=== PATIENT | male | born 1985 | race Caucasian/White ===

== ENCOUNTER 2017-12-28 01:05 | Inpatient (IN) | payer MEDICAID ==
[~2017-12-28] VITALS: Ht 195.6 cm; Wt 63.0 kg
[~2017-12-28 01:05] MED LIST: IRON325 PO; OXYCODONE HCL 55 MG PO; PEPCID20 MG PO; SENOKOT-S1 TA1 PO; ZOFRAN ODT4 MG PO
[2017-12-28 01:11] VITALS: BP 128/81
[2017-12-28 01:47] LABS: ABSOLUTE BASOPHILS 0.1 thou/uL (0.0-0.2); ABSOLUTE EOSINOPHILS 0.2 thou/uL (0.0-0.7); ABSOLUTE LYMPHOCYTES 3.1 thou/uL (0.8-5.3); ABSOLUTE MONOCYTES 1.6 thou/uL (0.0-1.2); ABSOLUTE NEUTROPHILS 10.8 thou/uL (1.6-8.1); BASOPHILS 0.7 %; HEMATOCRIT 42.1 % (42.0-52.0); HEMOGLOBIN 14.5 gm/dL (14.0-18.0); LYMPHOCYTES 19.9 %; MCH 32.3 pg (26.0-34.0); MCHC 34.4 g/dL (28.0-37.0); MONOCYTES 9.9 %; NUCLEATED RBCS 0 /100WBC; PLATELET COUNT* 306 thou/uL (150-400); POLYS 68.5 %; RBC 4.48 mil/uL (4.50-6.00); RDW-CV 14.6 % (10.5-14.5); WBC 15.8 thou/uL (4.0-11.0)
[2017-12-28 01:55] LABS: CALCIUM 10.1 mg/dL (8.5-10.1)
[2017-12-28 02:03] LABS: ALBUMIN 4.4 g/dL (3.4-5.0); TOTAL BILIRUBIN 2.7 mg/dL (<0.1-1.0); TOTAL PROTEIN 7.3 g/dL (6.4-8.2)
[2017-12-28 02:34] LABS: URINE BLOOD NEGATIVE (Negative); URINE CLARITY CLEAR; URINE COLOR YELLOW; URINE GLUCOSE-RANDOM NEGATIVE (Negative); URINE LEUKOCYTES-REFLEX NEGATIVE (Negative); URINE NITRITE-REFLEX NEGATIVE (Negative); URINE PROTEIN TRACE (Negative); URINE SPECIFIC GRAVITY >= 1.030 (1.005-1.030); URINE UROBILINOGEN 0.2 E.U./dl (0.2-1.0)
[2017-12-28 02:35] LABS: URINE BILIRUBIN 1+ (Negative); URINE KETONES 3+ (Negative)
[2017-12-28 02:40] LABS: URINE REDUCING SUBSTANCE NEGATIVE (Negative)
[2017-12-28 02:56] VITALS: BP 137/89
[2017-12-28 03:15] LABS: ICTOTEST (BILI CONFIRMATORY) Negative (Negative)
--- NOTE | 2017-12-28 04:49 | NUR ---
RECIEVED REPORT AND ASSUMED CARE OF PATIENT AT 0300 WHEN PATIENT WAS TRANSPORTED TO UNIT FROM ER. PATIENT AMBULATED TO BED WITH SBA, PATIENT SLIGHTLY UNSTEADY. PATIENT A&OX4. PATIENT ORIENTED TO ROOM AND CALL LIGHT. PATIENT STATES HE IS FAMILIAR WITH THE HOSPITAL, HE WAS HERE LAST YEAR WITH THE SAME DIAGNOSIS OF PANCREATITIS. PATIENT ON ROOM AIR WITH SATS >92%. IVF INFUSING PER EMAR. C/O PAIN IN ABDOMEN, DILAUDID ADMINISTERED PER EMAR WITH PARTIAL RELIEF. PATIENT OFFERED ALTERNATIVE METHODS OF PAIN RELIEF, PATIENT STATES HE "TRIED EVERYTHING AT HOME WITH NO RELIEF." PATIENT PROVIDED WITH A DARK, QUIET ENVIRONMENT TO PROMOTE REST AND RELAXATION. PATIENT RESTING COMFORTABLY AT THIS TIME. GOAL FOR THIS SHIFT IS EFFECTIVE PAIN MANAGEMENT. CALL LIGHT WITHIN REACH.
--- NOTE | 2017-12-28 06:36 | NUR ---
PATIENT NOT PROGRESSING TOWARDS GOALS: PAIN NOT MANAGED EFFECTIVELY WITH PRN DILAUDID. PATIENT STATES THAT IT "THE MEDICATION WEARS OFF QUICKLY AND THE PAIN SPIKES BACK UP." PATIENT COULD POSSIBLY BENEFIT FROM ALTERNATIVE MEDICATION, HOWEVER, PATIENT IS NPO SO HE WOULD NEED SOMETHING IV. PATIENT PROVIDED WITH A WARM BLANKET TO LAY ACROSS HIS ABDOMEN, HE STATES THIS MIGHT HELP. HOURLY ROUNDING OBSERVED. CALL LIGHT WITHIN REACH.
[2017-12-28] MEDS ORDERED: COLACE100 MG PO (06:59)
[2017-12-28 09:00] VITALS: BP 120/68
[2017-12-28 12:00] VITALS: BP 120/77
--- NOTE | 2017-12-28 13:55 | NUR ---
PT SLEEPING, WILL TRY TO SEE LATER. PER NURSE, HAVING PAIN CONTROL ISSUES
[2017-12-28 15:06] LABS: CHOLESTEROL 114 mg/dL (<200); HDL CHOLESTEROL 78 mg/dL (>40); LDL CHOLESTEROL 23 mg/dL (<100); TC:HDL 1.5 Ratio (Not establshd); TRIGLYCERIDE 69 mg/dL (<150); VLDL 14 mg/dL (<40)
[2017-12-28 15:08] LABS: SERUM ASSESSMENT Clear
[2017-12-28 16:00] VITALS: BP 121/77
--- NOTE | 2017-12-28 16:46 | NUR ---
ASSUMED PT CARE AT 0700 PT IS ALERT AND ORIENTED X 4 PT C/O PAIN IN ABDOMEN GAVE DILAUDED THROUGHOUT SHIFT WHICH PT STATES HELPS WITH PAIN, PT DENIES SOA ON RA, PT IS UP WITH STAND BY ASSIST, PT IS NPO WITH ICE CHIPS PT WAS COMPLETELY NPO FOR ULTRASOUND OF ABDOMEN, PT IS SR ON THE MONITOR, PT HAS SLEPT THROUGHOUT SHIFT, PT VSS, WILL CONTINUE TO MONITOR
[2017-12-28 20:00] VITALS: BP 138/98
[2017-12-29] VITALS: BP 128/76
[2017-12-29 04:03] VITALS: BP 127/79
[2017-12-29 05:28] LABS: HEMATOCRIT 36.9 % (42.0-52.0); HEMOGLOBIN 12.6 gm/dL (14.0-18.0); MCH 33.1 pg (26.0-34.0); MCHC 34.3 g/dL (28.0-37.0); MCV 96.4 fL (80.0-100.0); MPV 8.4 fl. (7.2-11.1); RBC 3.82 mil/uL (4.50-6.00); RDW-CV 13.8 % (10.5-14.5); WBC 7.7 thou/uL (4.0-11.0)
[2017-12-29 05:45] LABS: CREATININE 0.7 mg/dL (0.6-1.3); POTASSIUM 5.1 mmol/L (3.5-5.1)
[2017-12-29 05:47] LABS: CALCIUM 8.1 mg/dL (8.5-10.1)
--- NOTE | 2017-12-29 05:56 | NUR ---
PT A&O X4 CALM AND COOPERITVE. PT HAS PAIN IN ABD. MEDICATION GIVEN WITH RELIEF, PAIN MANAGEMENT PRIMARY GOAL OF PATIENT. FLUIDS GOING. RA. PT IS STAND BY / X1 ASSIST. SR-ST ON THE MONITOR. VITALS WNL. FALL PRECAUTIONS IN PLACE. HOURLY ROUNDING FOR SAFETY.
[2017-12-29 09:30] VITALS: BP 113/62
--- NOTE | 2017-12-29 11:30 | NUR ---
MET WITH PT TO DISCUSS HOME SITUATION/DC PLANNING. PT LIVES WITH HIS OLDER SISTER. PT IS INDEPENDENT AND ACTIVE, USES NO EQUIPMENT. PT STATES HE IS UNEMPLOYED AND LOOKING FOR A JOB. 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 PT HAS SUPPORTIVE FAMILY. HE USES [employer] TO GET FOOD. DISCUSSED PT'S ETOH USE, HE STATES HE FEELS HE HAS IT UNDER 'CONTROL'. HAS GONE TO AA IN THE PAST BUT NOT CURRENT. PT ADMITS THAT HE LAST DRANK 2 WEEKS AGO. STATES HE HAD PROBLEMS WITH RELATIONSHIP AND FINANCES BUT IS TRYING TO GET BACK ON TRACK. OFFERED COMMUNITY RESOURCES AND INFO, HE WAS OPEN TO THAT. PROVIDED TO HIM WELL DISABILITY INFO. ENCOURAGED HIM TO DISCUSS WITH HIS PCP IF HE WAS INTERESTED IN PURSUEING IT. WILL FOLLOW
[2017-12-29 12:00] VITALS: BP 104/64
[2017-12-29 16:00] VITALS: BP 110/65
--- NOTE | 2017-12-29 17:53 | NUR ---
ASSUMED PT CARE AT 0700 PT IS ALERT AND ORIENTED X 4 PT STATES LITTLE ABDOMINAL PAIN GAVE PAIN MEDS REASSESSED PT WHO WAS SLEEPING, TALKED WITH DR RASMUSSEN WHO ORDERED CLEAR LIQUID DIET WHICH PT IS TOLERATING AND STATES PAIN IN ABDOMEN IS BETTER AND PT HAS HAD NO FURTHER EPISODES OF NAUSEA, PT IS A FALL RISK BED ALARM IS ON, PT IS SR ON MONITOR, PT VSS, WILL CONTINUE TO MONITOR
[2017-12-29 20:20] VITALS: BP 105/68
[2017-12-30] VITALS: BP 114/72
[2017-12-30 04:00] VITALS: BP 118/78
--- NOTE | 2017-12-30 06:15 | NUR ---
A&O X4 CALM COOPERITVE. PAIN MANAGEMENT IS PT GOAL. PT HAS REPORTED PAIN HAS DECREASED. NSR ON THE MONITOR. PT IS STAND BY ASSIT BECAUSE OF REPORTS OF DIZZY NESS. FUILDS RUNNING. PT ON CLEAR LIQUID DIET TO ADVANCE. VITALS WNL. FALL PRECAUTIONS IN PLCE. HOULY ROUNDING FOR SAFETY.
[2017-12-30 08:00] VITALS: BP 113/70
[2017-12-30 11:34] VITALS: BP 116/76
[2017-12-30] MEDS ORDERED: HYDROCODONE-AP1 EAC6 PO (13:56)
[2017-12-30] MEDS ORDERED: ONDANSETRON HCL4 M2 PO (13:57)
[2017-12-30 14:35] VITALS: BP 116/76
== END 2017-12-30 15:07 | disposition home or self-care (01) | DRG 439 ==
LOC: M.ERS 01:05 → M.2W 02:17 → M.TBA-ER 02:17 → M.2W 03:07
PROVIDERS: Family Medicine; Internal Medicine; ADMIT Internal Medicine
DX: K85.90 Acute pancreatitis without necrosis or infection, unspecified (principal); B17.9 Acute viral hepatitis, unspecified; F32.9 Major depressive disorder, single episode, unspecified; F17.210 Nicotine dependence, cigarettes, uncomplicated; F10.10 Alcohol abuse, uncomplicated; E16.2 Hypoglycemia, unspecified; Z82.49 Family history of ischemic heart disease and other diseases of the circulatory system; Z79.899 Other long term (current) drug therapy

== ENCOUNTER 2018-04-05 21:19 | Inpatient (IN) | payer OTHER, MEDICAID ==
[~2018-04-05] VITALS: Ht 195.6 cm; Wt 68.0 kg
[~2018-04-05 21:19] MED LIST changes: +COLACE100 MG PO; +HYDROCODONE-AP1 EAC6 PO; +ONDANSETRON HCL4 M2 PO
[2018-04-05 21:31] VITALS: BP 120/55
[2018-04-05 21:55] LABS: ABSOLUTE BASOPHILS 0.1 thou/uL (0.0-0.2); ABSOLUTE EOSINOPHILS 0.1 thou/uL (0.0-0.7); ABSOLUTE LYMPHOCYTES 1.8 thou/uL (0.8-5.3); ABSOLUTE MONOCYTES 0.7 thou/uL (0.0-1.2); ABSOLUTE NEUTROPHILS 6.6 thou/uL (1.6-8.1); BASOPHILS 0.6 %; EOSINOPHILS 1.5 %; HEMATOCRIT 36.9 % (42.0-52.0); HEMOGLOBIN 12.4 gm/dL (14.0-18.0); LYMPHOCYTES 19.5 %; MCH 31.3 pg (26.0-34.0); MCHC 33.6 g/dL (28.0-37.0); MONOCYTES 7.3 %; MPV 8.3 fl. (7.2-11.1); NUCLEATED RBCS 0 /100WBC; PLATELET COUNT* 245 thou/uL (150-400); POLYS 71.1 %; RBC 3.97 mil/uL (4.50-6.00); WBC 9.3 thou/uL (4.0-11.0)
[2018-04-05 22:04] LABS: CALCIUM 9.1 mg/dL (8.5-10.1); POTASSIUM 3.8 mmol/L (3.5-5.1)
[2018-04-05 22:09] LABS: ALBUMIN 3.6 g/dL (3.4-5.0); TOTAL PROTEIN 6.6 g/dL (6.4-8.2)
[2018-04-05 22:10] LABS: ACETAMINOPHEN 11 ug/mL (10-30); SALICYLATE < 2.8 mg/dL (2.8-20.0)
[2018-04-05 22:12] LABS: ALCOHOL < 10 mg/dL (<10)
[2018-04-05 23:01] LABS: CHOLESTEROL 126 mg/dL (<200); HDL CHOLESTEROL 67 mg/dL (>40); LDL CHOLESTEROL 46 mg/dL (<100); SERUM ASSESSMENT Clear; TC:HDL 1.9 Ratio (Not establshd); TRIGLYCERIDE 66 mg/dL (<150); VLDL 13 mg/dL (<40)
[2018-04-05 23:20] VITALS: BP 142/93
[2018-04-05 23:30] VITALS: BP 142/93
[2018-04-06 08:00] VITALS: BP 135/90
[2018-04-06 09:08] LABS: URINE BILIRUBIN NEGATIVE (Negative); URINE BLOOD NEGATIVE (Negative); URINE CLARITY CLEAR; URINE COLOR YELLOW; URINE GLUCOSE-RANDOM NEGATIVE (Negative); URINE KETONES 2+ (Negative); URINE LEUKOCYTES-REFLEX NEGATIVE (Negative); URINE NITRITE-REFLEX NEGATIVE (Negative); URINE PROTEIN NEGATIVE (Negative); URINE SPECIFIC GRAVITY 1.025 (1.005-1.030); URINE UROBILINOGEN 0.2 E.U./dl (0.2-1.0)
[2018-04-06 09:17] LABS: AMP/METHAMP Negative (Negative); BARBITURATES Negative (Negative); BENZODIAZEPINES Negative (Negative); COCAINE Negative (Negative); METHADONE Negative (Negative); OPIATES POSITIVE (Negative); PCP Negative (Negative); THC Negative (Negative)
[2018-04-06 16:17] VITALS: BP 141/72
[2018-04-06 20:20] VITALS: BP 123/88
[2018-04-07 03:44] LABS: ABSOLUTE EOSINOPHILS 0.1 thou/uL (0.0-0.7); ABSOLUTE LYMPHOCYTES 0.8 thou/uL (0.8-5.3); ABSOLUTE MONOCYTES 0.4 thou/uL (0.0-1.2); BASOPHILS 0.2 %; EOSINOPHILS 1.6 %; HEMATOCRIT 34.8 % (42.0-52.0); HEMOGLOBIN 11.7 gm/dL (14.0-18.0); LYMPHOCYTES 11.5 %; MCHC 33.5 g/dL (28.0-37.0); MCV 92.5 fL (80.0-100.0); MONOCYTES 5.1 %; MPV 9.2 fl. (7.2-11.1); NUCLEATED RBCS 0 /100WBC; PLATELET COUNT* 196 thou/uL (150-400); POLYS 81.6 %; RBC 3.76 mil/uL (4.50-6.00); WBC 7.4 thou/uL (4.0-11.0)
[2018-04-07 04:24] LABS: CREATININE 0.7 mg/dL (0.6-1.3); POTASSIUM 3.8 mmol/L (3.5-5.1)
[2018-04-07 08:45] VITALS: BP 125/75
[2018-04-07 15:59] VITALS: BP 109/64
[2018-04-07 20:00] VITALS: BP 112/71
[2018-04-08 07:30] VITALS: BP 105/66
[2018-04-08 15:41] VITALS: BP 115/57
[2018-04-08 17:34] VITALS: BP 115/57
[2018-04-08] MEDS ORDERED: PANCREAZE DR 11 EAC2 PO (17:34)
--- NOTE | 2018-04-10 10:00 | CON ---
[address] [address] CONSULTATION Name: ELIJAH HAMMOND Room: [address] IN M.R.#: [id number] Admission: 04/05/18 Attend Phys: vSitlana Ruby MD Discharge: 04/08/18 Date of : 83 Report #: [id number] THIS REPORT FOR: //name// CC: CIPRIANO Ruby DATE OF SERVICE: 04/06/2018 ADDENDUM I have personally seen and examined the patient and reviewed labs and imaging. The patient with symptoms of epigastric pain and nausea, which started on Wednesday. The patient reports that he initially took some Tylenol and got some relief Wednesday, but Wednesday, his symptoms came back and were worsening. Therefore, he presented to the hospital. Since hospitalization, he found to have elevated lipase in 1900 range. He also has CT imaging evidence of acute pancreatitis. Note that this is his third episode of pancreatitis. He is currently on IV fluid. We will allow him to have clear liquids and MRI of the abdomen was done this evening, but the results are pending. We will recommend the endoscopic ultrasound as outpatient to further evaluate pancreatic duct to assure that he does not have any anomalies. Note that his pancreatitis was blamed on alcohol, as he had history of alcoholism. The patient claimed that he has not drank alcohol since a year ago. He may have had only few times that he may have drank half to 1 beer. <ELECTRONICALLY SIGNED> By: Yolanda Calzada MD 04/10/18 1000 [id number] Calzada MD /nt
--- NOTE | 2018-04-10 10:00 | CON ---
[address] [address] CONSULTATION Name: ELIJAH HAMMOND Room: [address] IN .R.#: [id number] Admission: 04/05/18 Attend Phys: Svitlana Ruby MD Discharge: 04/08/18 Date of : 83 Report #: [id number] THIS REPORT FOR: //name// CC: CIPRIANO Ruby DICTATED BY: Kathryn Cyr [facility] DATE OF SERVICE: 04/06/2018 The patient does not have a PCP. Please note at the time of this dictation, the patient was seen and physically examined by myself. REASON FOR CONSULTATION: Pancreatitis. HISTORY OF PRESENT ILLNESS: This is a 32-year-old male who presented to the Emergency Room with worsening abdominal pain, which got significantly worse after eating. The patient states he started noticing a little discomfort on Wednesday progressing then on Wednesday. He states he just got a new job working with the [employer] on the [employer] and he will have insurance that will kick in and he has not established yet with a PCP. The patient was last seen by us back in December of last year for his alcoholic pancreatitis. He has quit drinking since that time. However, he does admit that since last year he has probably had a total of 6 beers in total and last one being quite some time ago per the patient. He also states he has been taking he believes some pancreatic enzymes, but does not recall. He takes one tablet before meals, but does not know what the name of them is or what the units are that he has taken. He has been nauseous secondary to the pain, but no vomiting. On his last admission, the patient underwent an EGD and colonoscopy. EGD was completely normal. He had that done because of his iron deficiency anemia. Colon showed some large internal hemorrhoids and he had shallow erosion in the TI with some active ileitis that was noted on pathology and it could have likely been related to NSAIDs. The patient states he only takes Tylenol and no ibuprofen or anything of that nature. Because the pain got so bad, the patient states he did take some leftover hydrocodone that he had from his previous hospitalization. ALLERGIES: No known drug allergies. MEDICATIONS FROM HOME: None. PAST MEDICAL HISTORY: Depression and pancreatitis. PAST SURGICAL HISTORY: [place] [address] CONSULTATION Name: ELIJAH HAMMOND Room: [address]#: [id number] Admission: 04/05/18 Attend Phys: Svitlana Ruby MD Discharge: 04/08/18 Date of : 83 Report #: [id number] FAMILY HISTORY: Noncontributory. SOCIAL HISTORY: He does continue to smoke, but denies alcohol. He has had 6 beers in the last year and denies any illegal drug use. REVIEW OF SYSTEMS: Twelve-point review of systems is essentially negative except what is mentioned in the HPI. PHYSICAL EXAMINATION: VITAL SIGNS: Temperature 36.8, pulse 75, respirations 16 and blood pressure 135/90. HEART: Regular rate and rhythm. LUNGS: Clear. ABDOMEN: Soft, positive bowel sounds in all 4 quadrants with tenderness noted in the epigastric to left upper quadrant area. LABORATORY DATA: Hemoglobin is 12.4, hematocrit 36.9, white count is 9.3 and platelets 245. Sodium 140, potassium 3.8, chloride 104, CO2 of 25, BUN is 11, creatinine is 1, GFR is 86, glucose is 129 and lipase is 1960. Also please note LFTs are completely normal. CT of the abdomen and pelvis shows mild peripancreatic edema, also a cystic lesion noted in the pancreatic tail, previously measured at 13 mm and it has increased in size to 23. IMPRESSION: 1. Abdominal pain. 2. Pancreatitis secondary to alcohol abuse. PLAN: 1. MRI and ultrasound pending. 2. Clear liquids after these have been done. 3. Increase his IV fluids ____ mL an hour. 4. The patient will need to restart and probably increase his pancreatic enzymes once he is able to tolerate a diet. Thank you for allowing us to participate in this patient's care. Please do not hesitate to call with any questions in regard to this consult. <ELECTRONICALLY SIGNED> By: Yolanda Calzada MD 04/10/18 1000 [id number] [id number] Calzada MD /nt
== END 2018-04-08 17:45 | disposition home or self-care (01) | DRG 439 ==
LOC: M.ERS 21:19 → M.ORTHSURG 22:41 → M.TBA-ER 22:41 → M.ORTHSURG 23:30
PROVIDERS: Emergency Medicine; Internal Medicine; ADMIT Internal Medicine
DX: K85.90 Acute pancreatitis without necrosis or infection, unspecified (principal); R18.8 Other ascites; K86.3 Pseudocyst of pancreas; R65.10 Systemic inflammatory response syndrome (SIRS) of non-infectious origin without acute organ dysfunction; E86.0 Dehydration; F32.9 Major depressive disorder, single episode, unspecified; F17.210 Nicotine dependence, cigarettes, uncomplicated; Z79.899 Other long term (current) drug therapy; Z80.8 Family history of malignant neoplasm of other organs or systems; Z82.49 Family history of ischemic heart disease and other diseases of the circulatory system

== ENCOUNTER 2018-07-06 06:57 | Inpatient (IN) | payer OTHER, MEDICAID ==
[~2018-07-06] VITALS: Ht 195.6 cm; Wt 63.5 kg
[~2018-07-06 06:57] MED LIST changes: +PANCREAZE DR 11 EAC2 PO
[2018-07-06 07:08] VITALS: BP 125/82
[2018-07-06] MEDS ORDERED: FEOSOL325 M1 PO (07:10)
[2018-07-06] MEDS ORDERED: PEPCID20 MG PO (07:10)
[2018-07-06 07:32] LABS: HEMOGLOBIN 11.6 gm/dL (14.0-18.0); NUCLEATED RBCS 0 /100WBC; WBC 5.9 thou/uL (4.0-11.0)
[2018-07-06 07:34] LABS: ABSOLUTE EOSINOPHILS 0.1 thou/uL (0.0-0.7); ABSOLUTE LYMPHOCYTES 1.4 thou/uL (0.8-5.3); ABSOLUTE MONOCYTES 0.5 thou/uL (0.0-1.2); ABSOLUTE NEUTROPHILS 3.8 thou/uL (1.6-8.1); BASOPHILS 0.8 %; EOSINOPHILS 2.5 %; HEMATOCRIT 35.3 % (42.0-52.0); LYMPHOCYTES 23.9 %; MCH 29.1 pg (26.0-34.0); MONOCYTES 8.3 %; MPV 7.9 fl. (7.2-11.1); PLATELET COUNT* 218 thou/uL (150-400); POLYS 64.5 %; RBC 4.01 mil/uL (4.50-6.00); RDW-CV 15.6 % (10.5-14.5)
[2018-07-06 07:40] LABS: CALCIUM 8.1 mg/dL (8.5-10.1); CREATININE 0.8 mg/dL (0.6-1.3); POTASSIUM 3.2 mmol/L (3.5-5.1)
[2018-07-06 07:45] LABS: ALBUMIN 3.5 g/dL (3.4-5.0); TOTAL BILIRUBIN 2.5 mg/dL (<0.1-1.0); TOTAL PROTEIN 6.4 g/dL (6.4-8.2)
[2018-07-06 08:45] LABS: URINE BILIRUBIN NEGATIVE (Negative); URINE BLOOD NEGATIVE (Negative); URINE CLARITY CLEAR; URINE COLOR YELLOW; URINE GLUCOSE-RANDOM NEGATIVE (Negative); URINE KETONES NEGATIVE (Negative); URINE LEUKOCYTES-REFLEX NEGATIVE (Negative); URINE NITRITE-REFLEX NEGATIVE (Negative); URINE PROTEIN NEGATIVE (Negative); URINE UROBILINOGEN 0.2 E.U./dl (0.2-1.0)
[2018-07-06 08:51] LABS: AMP/METHAMP Negative (Negative); BARBITURATES Negative (Negative); BENZODIAZEPINES Negative (Negative); COCAINE Negative (Negative); METHADONE Negative (Negative); OPIATES POSITIVE (Negative); PCP Negative (Negative); THC Negative (Negative)
[2018-07-06 10:54] VITALS: BP 118/60
[2018-07-06 11:20] VITALS: BP 155/76
--- NOTE | 2018-07-06 11:55 | NUR ---
ALLYN CAME TO THE FLOOR FROM THE ER VIA CART, BITAL SIGNS STABLE ON ROOM AIR. IV IN RIGHT AC WITH FLUID RUNNING. PATIENT IS COMPLAINING OF 9 OUT OF 10 PAIN EVEN WITH PAIN MEDICATIONS. HEAT PAD ORDERED FOR PATIENT. FAMILY IS AT BEDSIDE. ROOM ORIENTATION DONE AND ADMISSION ASSESSMENT DONE, QUESTIONS ANSWERED FOR PATIENT AND FAMILY. CALL LIGHT IS IN REACH WILL CONTINUE TO MONITOR.
[2018-07-06 15:41] VITALS: BP 147/84
--- NOTE | 2018-07-06 17:44 | NUR ---
PATIENT IS ALERT AND ORIENTED TODAY. COMPLAINS AT ALL TIMES OF PAIN EVEN WITH MEDICATIONS. COMPLAINED THAT MORPHINE WASN'T WORKING SO PROVIDER CHANGED TO DILAUDID. PATIENT HAS BEEN ASLEEP MOST OF THE AFTERNOON, WHEN HE WOKEN UP HE STARTS COMPLAINING OF PAIN AGAIN. PATIENT WENT FOR A PROCEDURE TODAY. VITAL SIGNS HAVE BEEN STABLE ROOM AIR. WILL CONTINUE TO MONITOR.
[2018-07-06 20:07] VITALS: BP 136/80
--- NOTE | 2018-07-07 04:22 | NUR ---
ASSUMED CARE OF PT AT 1900 PT ALERT AND ORIENTED X4 VS AND ASSESSMENT STABLE. PT C/O ABDOMINAL PAIN OVERNIGHT GAVE PRN PERCOCET ALTERNATING WITH HYDROMORPHE ORDERED. WILL CONTINUE PLAN OF CARE.
[2018-07-07 06:25] LABS: ALBUMIN 3.2 g/dL (3.4-5.0); CALCIUM 8.1 mg/dL (8.5-10.1); CREATININE 0.7 mg/dL (0.6-1.3); POTASSIUM 3.8 mmol/L (3.5-5.1); TOTAL PROTEIN 5.6 g/dL (6.4-8.2)
[2018-07-07 09:23] VITALS: BP 120/69
--- NOTE | 2018-07-07 16:30 | NUR ---
ASSUMED CARE OF PATIENT AFTER MORNING REPORT AT APPROX 0720. ALERT AND ORIENTED X4. ASSESSMENT COMPLETED AND CHARTED. VSS ON ROOM AIR. PATIENT HAS HAD NO COMPLAINTS OF NAUSEA OR SOA. PAIN HAS BEEN MANAGED WITH PAIN MEDICATION. FLUIDS INFUSED ORDERED. PATEINT UP AMBULATING IN THE ROOM AND AROUDN THE UNIT. HAS A SHOWER THIS MORNING. CORTICOSTEROID CREAM AND BENADRYL ORDERED FOR ITCHING RELATED TO WHAT HE CLAIMS IS POISON SUMAC, PATIENT STATES THAT ITCHIGN HAS IMPROVED WITH A SHOWER, APPLICATION OF CREAM AND TAKING THE BENADRYL. RESTING COMFORTABLY IN BED AT THIS TIME. HOURLY ROUNDS MAINTAINED, CALL LIGHT WITHIN REACH, NURSING WILL CONTINUE TO MONITOR.
[2018-07-07 16:46] VITALS: BP 131/70
--- NOTE | 2018-07-07 18:00 | NUR ---
ASSUMED PT CARE @ 1630. PT ADMINISTERED IV MEDICATIONS FOR NAUSEA AND PAIN. IV INFUSING @ 200 MLS/HR. UP TO BR WITH SBA. WILL USE CALL LIGHT FOR ASSISTANCE. CALL LIGHT WITHIN REACH. NURSING WILL CONTINUE TO MONITOR.
[2018-07-07 20:20] VITALS: BP 128/72
[2018-07-08 03:57] LABS: ALBUMIN 2.9 g/dL (3.4-5.0); CREATININE 0.7 mg/dL (0.6-1.3); MAGNESIUM 1.7 mg/dL (1.8-2.4); POTASSIUM 3.8 mmol/L (3.5-5.1); TOTAL PROTEIN 5.1 g/dL (6.4-8.2)
--- NOTE | 2018-07-08 04:35 | NUR ---
PATIENT HAS REMAINED ALERT AND ORIENTED X 4 THROUGHOUT THE SHIFT AND RESTING QUIETLY ON HOURLY ROUNDS. HAVING A SINUS HEADACHE WELL ABDOMINAL PAIN TONIGHT. PROVIDED BENADRYL X 1 FOR BOTH SINUS SYMPTOMS AND ITCHING OF ARMS FROM POISON SUMMAC. OXYCODONE FOR HEADACHE X 1 AND IV DILAUDID FOR ABDOMINAL PAIN X 2 WITH ZOFRAN X 1 THIS SHIFT. VOIDING WELL. K-PAD TO ABDOMEN PRN ALSO FOR PAIN RELIEF. LOW-GRADE FEVER. NO BOWEL MOVEMENTS, NO EMESIS. CONTINUE TO MONITOR.
[2018-07-08 09:40] VITALS: BP 131/72
--- NOTE | 2018-07-08 11:30 | NUR ---
DROWSY, EATING FULL LIQUID LUNCH. STATED HE IS FEELING SOME BETTER. HE SAID HE IS ALTERNATING ORAL PAIN MEDS WITH IV. MAINLY GETS NAUSEATED AT TIMES BECAUSE OF PAIN MEDICINE. HE DOES NOT USE ANY DME. NO HX OF HH. HIS SISTER NAHUN LIVES WITH HIM. 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 HE SAID HE WILL NOT HAVE ANY DISCHARGE NEEDS.
[2018-07-08 16:54] VITALS: BP 119/82
--- NOTE | 2018-07-08 18:45 | NUR ---
ASSUMED CARE OF PATIENT AFTER MORNING REPORT. ALERT AND ORIENTED X4. ASSESSMENT COMPLETED AND CHARTED. VSS ON ROOM AIR. FLUIDS INFUSED ORDERED. PATIENTS PAIN AND NAUSEA HAVE BEEN MANAGED WITH MEDICATIONS. PATIENT HAS BEEN WALKING IN THE ROOM AND AROUND THE UNIT. PATIENT SHOWERED THIS AFTERNOON. HOURLY ROUNDS MAINTAINED, CALL LIGHT WITHIN REACH, NURSING WILL CONTINUE TO MONITOR.
[2018-07-08 20:45] VITALS: BP 115/75
[2018-07-09 04:46] VITALS: BP 135/85
[2018-07-09 05:10] LABS: IgG 592 mg/dL (700-1600)
--- NOTE | 2018-07-09 06:00 | NUR ---
ALERT AND ORIENTED X4. UP AD FRANCES WITHOUT DIFFICULTY. USING IV AND PO MEDICATION TO HELP WITH ABDOMINAL PAIN AND NAUSEA. K PAD ALSO USED ON ABDOMEN TO HELP WITH PAIN RELIEF. RESTING QUIETLY IN BED WHEN CHECKED ON ROUNDS. CALL LIGHT WITHIN REACH. IVF INFUSING WITHOUT DIFFICULTY.
[2018-07-09] MEDS ORDERED: ZITHROMAX250 MG PO (09:22)
[2018-07-09] MEDS ORDERED: PEPCID20 MG PO (09:22)
[2018-07-09] MEDS ORDERED: NORCO 10-325 T1 EACH PO (09:22)
[2018-07-09 09:54] VITALS: BP 135/75
[2018-07-09 10:24] LABS: ABSOLUTE EOSINOPHILS 0.2 thou/uL (0.0-0.7); ABSOLUTE LYMPHOCYTES 1.2 thou/uL (0.8-5.3); ABSOLUTE MONOCYTES 0.4 thou/uL (0.0-1.2); ABSOLUTE NEUTROPHILS 2.9 thou/uL (1.6-8.1); BASOPHILS 0.8 %; EOSINOPHILS 3.9 %; HEMATOCRIT 29.4 % (42.0-52.0); HEMOGLOBIN 9.9 gm/dL (14.0-18.0); LYMPHOCYTES 24.9 %; MCH 29.4 pg (26.0-34.0); MCHC 33.5 g/dL (28.0-37.0); MCV 87.6 fL (80.0-100.0); MONOCYTES 8.8 %; MPV 7.8 fl. (7.2-11.1); NUCLEATED RBCS 0 /100WBC; PLATELET COUNT* 165 thou/uL (150-400); POLYS 61.6 %; RBC 3.36 mil/uL (4.50-6.00); RDW-CV 15.2 % (10.5-14.5); WBC 4.6 thou/uL (4.0-11.0)
[2018-07-09 10:27] VITALS: BP 135/75
[2018-07-09 10:37] LABS: CALCIUM 8.3 mg/dL (8.5-10.1); CREATININE 0.7 mg/dL (0.6-1.3); POTASSIUM 3.7 mmol/L (3.5-5.1)
[2018-07-09 10:42] LABS: ALBUMIN 2.9 g/dL (3.4-5.0); TOTAL BILIRUBIN 0.5 mg/dL (<0.1-1.0); TOTAL PROTEIN 5.9 g/dL (6.4-8.2)
[2018-07-09 11:30] LABS: ESR (SEDRATE) 22 mm/hr (0-15)
--- NOTE | 2018-07-09 11:32 | NUR ---
ASSUMED CARE OF PATIENT AFTER MORNING REPORT AT APPROX 0720. ALERT AND ORIENTED X4. ASSESSMENT COMPLETED AND CHARTED. VSS ON ROOM AIR. PATIENTS PAIN AND NAUSEA CONTROLLED WITH MEDICATIONS. NO COMPLAINTS OF SOA. FLUIDS INFUSED ORDERED. PATEINT REFUSED ORAL ANTIBIOTICS DUE TO STOMACH UPSET BUT SAYS HE WILL TAKE THEM AT HOME. PATEINT DISCHARGED AT 1100, ALL PERSONAL BELONGINGS, PRESCRIPTIONS AND DISCHARGE INFORMATION SENT WITH PATIENT UPON DISCHARGE.
--- NOTE | 2018-07-28 13:22 | CON ---
[address] [address] CONSULTATION Name: ELIJAH HAMMOND Room: [address] IN M.R.#: [id number] Admission: 07/06/18 Attend Phys: Keesha Bass Discharge: 07/09/18 Date of : 83 Report #: [id number] THIS REPORT FOR: //name// CC: CIPRIANO BRICE Physician staff Nito Tariq DATE OF SERVICE: 07/06/2018 REASON FOR CONSULTATION: Acute pancreatitis. CONSULT PLACED BY: Dr. Kimberly White. HISTORY OF PRESENT ILLNESS: This is a pleasant 32-year-old male, with past medical history of recurrent episodes of acute pancreatitis, who is presenting with another episode of abdominal pain. The patient reports that yesterday, he had some barbecue for lunch and following that, began feeling discomfort in the abdomen. This progressively worsened over the course of the night and became very severe in the morning when he presented to the hospital. The patient reports the pain is located in the upper abdomen. It is 10/10 in intensity, is nonradiating and sharp in character. The patient reports associated nausea and vomiting, and he reports that his emesis was clear and nonbloody and nonbilious. The patient denies any significant change in bowel movements or diarrhea and reports the pain is similar to his previous episodes of pancreatitis. The patient reports that he used to be a heavy alcohol drinker, but has cut down in recent time. His last drink was on Wednesday over the Day weekend when he had 2 beers. PAST MEDICAL HISTORY: Recurrent episodes of acute pancreatitis twice. PAST SURGICAL HISTORY: Nonsignificant. SOCIAL HISTORY: The patient reports history of alcohol abuse in the past. He reports he quit marijuana 9 months ago. He currently has a 33-[id number]-vhbw smoking history. He smokes 1/2 pack per day. FAMILY HISTORY: Reviewed and nonsignificant. REVIEW OF SYSTEMS: Comprehensive 10-point review of systems is negative except for what was mentioned in the HPI. LABORATORY DATA: Hemoglobin 11.6, hematocrit 35.3, WBC count 5.9, platelet count 218. Sodium 138, potassium 3.2, chloride 104, bicarbonate 27, BUN 11, creatinine 0.8, total bilirubin 2.5, AST 59, ALT 60, alkaline phosphatase 104, lipase 997. Urine drug screen negative. Serum [place] [address] CONSULTATION Name: ELIJAH HAMMOND Room: [address]#: [id number] Admission: 07/06/18 Attend Phys: Keesha Bass Discharge: 07/09/18 Date of : 83 Report #: [id number] imaging performed at admission. ASSESSMENT AND PLAN: This is a very pleasant 32-year-old male with past medical history of at least two other episodes of pancreatitis with stranding with another episode of acute pancreatitis. The patient continues to smoke and drink alcohol, although not to the extent that he did previously. His last alcoholic drink was on Wednesday. Mild acute pancreatitis. The presence of local complications is unknown. Due to his elevated bilirubin, I would like to get an MRCP to rule out biliary obstruction. I am also going to check a serum IgG4 levels to rule out IgG4 related pancreatitis. I recommend surgery consultation for cholecystectomy, but I will await the results of his MRCP before placing this. The patient will need to stop both smoking and alcohol use completely if he wishes to reduce the risk of future episodes of pancreatitis. He does need an outpatient EUS, which I can set up. Continue with conservative management including IV fluids and pain medications for now. <ELECTRONICALLY SIGNED> By: Dao Preciado MD 07/28/18 1322 1531 [id number] Preciado MD /nt
== END 2018-07-09 11:00 | disposition home or self-care (01) | DRG 439 ==
LOC: M.ERS 06:57 → M.TBA-ER 08:37 → M.ORTHSURG 08:37
PROVIDERS: Internal Medicine; Internal Medicine Gastroenterology; Personal Emergency Response Attendant; ADMIT Internal Medicine
DX: K85.20 Alcohol induced acute pancreatitis without necrosis or infection (principal); B17.9 Acute viral hepatitis, unspecified; K86.3 Pseudocyst of pancreas; E44.0 Moderate protein-calorie malnutrition; Z68.1 Body mass index [BMI] 19.9 or less, adult; F32.9 Major depressive disorder, single episode, unspecified; F17.210 Nicotine dependence, cigarettes, uncomplicated; F12.90 Cannabis use, unspecified, uncomplicated; J32.9 Chronic sinusitis, unspecified; B96.89 Other specified bacterial agents as the cause of diseases classified elsewhere; D64.9 Anemia, unspecified; Z82.49 Family history of ischemic heart disease and other diseases of the circulatory system; Z80.0 Family history of malignant neoplasm of digestive organs; Z79.899 Other long term (current) drug therapy

== ENCOUNTER 2019-03-07 15:41 | Inpatient (IN) | payer OTHER ==
[~2019-03-07] VITALS: Ht 193 cm; Wt 88.4 kg
--- NOTE | ~2019-03-07 | CON ---
[address] [address] CONSULTATION Name: ELIJAH HAMMOND Room: [address] IN M.R.#: [id number] Admission: 03/07/19 Attend Phys: Svitlana Ruby MD Discharge: Date of : 83 Report #: [id number] THIS REPORT FOR: //name// CC: Dr. Murrieta at [facility] physician/PCP Svitlana Ruby DICTATED BY: Kathryn Cyr [facility] DATE OF SERVICE: 03/08/2019 PRIMARY CARE PHYSICIAN: Dr. Murrieta at [facility]. Please note at the time of this dictation, the patient was seen and physically examined by myself. REASON FOR CONSULTATION: Abdominal pain and pancreatitis. HISTORY OF PRESENT ILLNESS: This is a 33-year-old male who presented to the ER with complaints of upper abdominal pain, which started a little bit on Wednesday evening and has progressively worsened over the last several days with which he has had nausea, vomiting, abdominal pain and diarrhea. The patient states that over the weekend, he ate a lot of greasy and healthy foods as well, drinking a 6-pack. This put things into motion for his ongoing issues. He states he was doing relatively well; however, in asking him about his pancreatic enzymes, he states he has only taken one tablet several times a day when he should be taking four 4 times a day and will need further clarification in regards to tat latter. The patient has a longstanding history of anemia as well as alcoholic pancreatitis and has been told to quit drinking and recommendations have been made that he get an outpatient EUS, but that has never been obtained. The patient also has ongoing anemia. He underwent an EGD and colonoscopy back in December 2016. His EGD was normal and colonoscopy showed some large internal hemorrhoids that were banded x 4 and he had a shallow erosion at the terminal ileum. He was to take iron for 3 months, but we have not seen any significant improvement until December of 2017. His hemoglobin was up to 12.6 at that time and he has not ever had a capsule endoscopy either. ALLERGIES: No known drug allergies. MEDICATIONS: From home it appears that he reports he is still taking iron supplement and his Pancrease 10,500 units 1 with meals. PAST MEDICAL HISTORY: Pancreatitis, ongoing alcohol abuse and depression. PAST SURGICAL HISTORY: [place] [address] CONSULTATION Name: ELIJAH HAMMOND Room: [address] IN [facility].#: [id number] Admission: 03/07/19 Attend Phys: Svitlana Ruby MD Discharge: Date of : 83 Report #: [id number] FAMILY HISTORY: Negative for any GI or female cancers. SOCIAL HISTORY: Still admits to tobacco use and alcohol use but not as significant as it used to be. REVIEW OF SYSTEMS: Twelve-point review of systems is essentially negative except what is mentioned in the HPI. PHYSICAL EXAMINATION: VITAL SIGNS: Temperature 37.1, pulse 74, respirations 18 and blood pressure 123/69. HEART: Regular rate and rhythm. LUNGS: Clear. ABDOMEN: Soft. Positive bowel sounds in all 4 quadrants with tenderness noted in the upper quadrants. LABORATORY DATA: Hemoglobin on admission was 10.3, is down to 7.9 and it is noted in December of 2017, he was 12.6; white count on admission was 11.8 and he is down to 8.9 and platelets are 231. GFR is 129. Lipase was 2067. Total bilirubin on admission was 1.5, he is down to 1.1; alkaline phosphatase 67; ALT 20 and AST is 13. Iron was 15, TIBC was 479, ferritin was 10 and B12 was 894. RADIOLOGICAL DATA: Ultrasound showed gallbladder distention. CT showed gallbladder distention with peripancreatic edema noted as well. The patient did have an MRCP done in July 2018 that showed a cyst in the tail of his pancreas; however, on CT this time showed no cyst but a slight ductal ectasia and edema. IMPRESSION: 1. Abdominal pain. 2. Alcoholic pancreatitis. 3. Nausea and vomiting, improving. 4. Anemia, recurrent. 5. History of alcohol abuse. PLAN: 1. We will increase his IV fluids. 2. Again, reiterated to the patient about abstinence of alcohol completely. 3. We will need clarification regarding his pancreatic enzymes that he is taking four with each meal and not just one. 5. The patient will likely need an EUS as an outpatient as well as a small bowel capsule to fully [place] [address] CONSULTATION Name: ELIJAH HAMMOND Room: [address] IN [facility]#: [id number] Admission: 03/07/19 Attend Phys: Svitlana Ruby MD Discharge: Date of : 83 Report #: [id number] Thank you for allowing us to participate in this patient's care. Please do not hesitate to call with any questions in regard to this consult. By: [id number] Calzada MD /enmanuel
--- NOTE | ~2019-03-07 | CON ---
[address] [address] CONSULTATION Name: ELIJAH HAMMOND Room: [address] IN M.R.#: [id number] Admission: 03/07/19 Attend Phys: Svitlana Ruby MD Discharge: Date of : 83 Report #: [id number] THIS REPORT FOR: //name// CC: [facility] physician/PCP Svitlana Ruby DATE OF SERVICE: 03/08/2019 ADDENDUM This is a 33-year-old male who presented with abdominal pain, most probably secondary to pancreatitis, secondary to alcohol abuse. The patient also initially had symptoms of nausea and vomiting, which are improving. He has chronic anemia with hemoglobin of 8.1. We will consider EGD to further evaluate his anemia. I will also consider endoscopic ultrasound as outpatient to evaluate his recurrent pancreatitis. We will make further recommendations based on the EGD finding. By: [id number] Calzada MD /nt
[~2019-03-07 15:41] MED LIST changes: +FEOSOL325 M1 PO; +NORCO 10-325 T1 EACH PO; +ZITHROMAX250 MG PO
[2019-03-07 15:51] VITALS: BP 141/64
[2019-03-07 16:23] LABS: EOSINOPHILS 0.4 %; NUCLEATED RBCS 0 /100WBC
[2019-03-07 16:25] LABS: ABSOLUTE BASOPHILS 0.1 thou/uL (0.0-0.2); ABSOLUTE LYMPHOCYTES 2.9 thou/uL (0.8-5.3); ABSOLUTE MONOCYTES 0.6 thou/uL (0.0-1.2); ABSOLUTE NEUTROPHILS 8.1 thou/uL (1.6-8.1); HEMATOCRIT 35.3 % (42.0-52.0); HEMOGLOBIN 10.3 gm/dL (14.0-18.0); LYMPHOCYTES 24.6 %; MCHC 29.1 g/dL (28.0-37.0); MCV 65.4 fL (80.0-100.0); MONOCYTES 5.5 %; MPV 8.5 fl. (7.2-11.1); PLATELET COUNT* 374 thou/uL (150-400); POLYS 68.5 %; RDW-CV 22.8 % (10.5-14.5); WBC 11.8 thou/uL (4.0-11.0)
[2019-03-07 16:33] LABS: CALCIUM 9.5 mg/dL (8.5-10.1); CREATININE 1.4 mg/dL (0.6-1.3); POTASSIUM 3.2 mmol/L (3.5-5.1)
[2019-03-07 16:38] LABS: ALBUMIN 4.4 g/dL (3.4-5.0); TOTAL BILIRUBIN 1.5 mg/dL (<0.1-1.0); TOTAL PROTEIN 7.6 g/dL (6.4-8.2)
--- NOTE | 2019-03-07 17:23 | NUR ---
CT COMPLEATED PATIENT RETURNED TO ED
--- NOTE | 2019-03-07 18:50 | NUR ---
REPORT GIVEN TO KYLE LOCKE WHO IS TO ASSUME PT CARE. KYLE LOCKE AWARE THAT PT WOULD LIKELY BE BROUGHT UP AFTER SHIFT CHANGE, KYLE LOCKE STATED UNDERSTANDING.
[2019-03-07 18:51] VITALS: BP 142/80
[2019-03-07 19:30] VITALS: BP 143/92
[2019-03-07 23:41] VITALS: BP 133/76
[2019-03-08 04:00] VITALS: BP 126/78
--- NOTE | 2019-03-08 05:04 | NUR ---
PT ARRIVED ON UNIT AT 1930 ASSISTED TO ROOM ORIENTED TO SURROUNDING ALERT AND ORIENTED X4 VS AND ASSESSMENT STABLE NSR ON THE MONITOR. PT HAD PAIN MEDS EVERY TWO HOURS AND NAUSEA MEDS TWICE THEN SLEPT IN BETWEEN. WILL CONTINUE PLAN OF CARE.
[2019-03-08 05:41] LABS: HEMATOCRIT 27.3 % (42.0-52.0); MCH 19.1 pg (26.0-34.0); MPV 8.8 fl. (7.2-11.1); RBC 4.14 mil/uL (4.50-6.00); RDW-CV 22.5 % (10.5-14.5); WBC 8.9 thou/uL (4.0-11.0)
[2019-03-08 05:53] LABS: HEMOGLOBIN 7.9 gm/dL (14.0-18.0)
[2019-03-08 06:01] LABS: ALBUMIN 3.1 g/dL (3.4-5.0); ALKALINE PHOSPHATASE 67 U/L (46-116); ANION GAP 9 mmol/L (7-16); BUN 10 mg/dL (7-18); CALCIUM 8.2 mg/dL (8.5-10.1); CHLORIDE 107 mmol/L (98-107); CHOLESTEROL 101 mg/dL (<200); CO2 25 mmol/L (21-32); CREATININE 0.7 mg/dL (0.6-1.3); GLUCOSE 93 mg/dL (70-99); HDL CHOLESTEROL 44 mg/dL (>40); LDL CHOLESTEROL 44 mg/dL (<100); LIPASE 2067 U/L (73-393); MAGNESIUM 1.6 mg/dL (1.8-2.4); POTASSIUM 3.8 mmol/L (3.5-5.1); SGOT 13 U/L (15-37); SGPT 20 U/L (30-65); SODIUM 141 mmol/L (136-145); TC:HDL 2.3 Ratio (Not establshd); TOTAL BILIRUBIN 1.1 mg/dL (<0.1-1.0); TOTAL PROTEIN 5.8 g/dL (6.4-8.2); TRIGLYCERIDE 68 mg/dL (<150); VLDL 14 mg/dL (<40)
[2019-03-08 06:11] LABS: SERUM ASSESSMENT Clear
[2019-03-08 08:13] VITALS: BP 123/69
--- NOTE | 2019-03-08 10:32 | EKG ---
[place] [address] ELECTROCARDIOGRAM REPORT Name: ELIJAH HAMMOND Room: [address] ADM IN M.R.#: [id number] Admission: 03/07/19 Attend Phys: Svitlana Ruby MD Discharge: Date of : 83 Report #: [id number] THIS REPORT FOR: //name// [facility] ED Test Date: 2019-03-07 Test Time: 18:12:08 Pat Name: ELIJAH HAMMOND Department: Room: [facility] Gender: Director Media: Mark EASTON : 1985 Requested By: Deisy Lux Order Number: [id number] MD: Nelson Soliz Measurements Intervals [place] Rate: 61 P: 50 [place]: 113 QRS: 67 QRSD: 98 T: 73 QT: 456 QTc: 460 Interpretive Statements Sinus rhythm Borderline short [place] interval ST elev, probable normal early repol pattern No previous ECG available for comparison Electronically Signed On 03-08-2019 10:32:43 CDT by Nelson Soliz [email or web address] <ELECTRONICALLY SIGNED> By: Nelson Soliz MD, [facility] [id number] Nelson Soliz MD, [facility] /EPI
--- NOTE | 2019-03-08 11:31 | NUR ---
Pt is A&O. Resides at home. Independent and active. No DME. No hx of HH or SNF. Goal is home at wi. No needs anticipated.
[2019-03-08 12:18] VITALS: BP 125/65
[2019-03-08 16:22] VITALS: BP 134/74
[2019-03-08 20:00] VITALS: BP 122/84
[2019-03-09] VITALS: BP 128/79
[2019-03-09 04:00] VITALS: BP 138/78
--- NOTE | 2019-03-09 05:15 | NUR ---
ASSUMED CARE OF PT AT 1900 PT ALERT AND ORIENTED X4. VS AND ASSESSMENT STABLE. PT RECIEVED YESENIA MEDS X 4 AND THEN SLEPT IN BETWEEN. PT RUNNING NSR ON THE MONITOR. WILL CONTINUE PLAN OF CARE.
[2019-03-09 05:33] LABS: HEMATOCRIT 27.8 % (42.0-52.0); HEMOGLOBIN 8.3 gm/dL (14.0-18.0); MCH 19.4 pg (26.0-34.0); MCHC 29.6 g/dL (28.0-37.0); MCV 65.5 fL (80.0-100.0); MPV 8.6 fl. (7.2-11.1); RBC 4.25 mil/uL (4.50-6.00); RDW-CV 22.7 % (10.5-14.5); WBC 6.8 thou/uL (4.0-11.0)
[2019-03-09 05:59] LABS: CALCIUM 8.5 mg/dL (8.5-10.1); CREATININE 0.7 mg/dL (0.6-1.3); MAGNESIUM 2.1 mg/dL (1.8-2.4); POTASSIUM 3.9 mmol/L (3.5-5.1)
[2019-03-09 08:40] VITALS: BP 138/86
--- NOTE | 2019-03-09 10:07 | NUR ---
ASSUMED PT CARE 729. VSS. AFEBRILE. C/O OF SHARP INTERMITTENET RIGHT SIDED ABDOMINAL PAIN. PRN PAIN MEDICATION ADMININSTERED PER DEC. PT C/O OF NAUSEA. PRN ZOFRAN ADMININSTERED PER DEC. HEATING PAD ON ABDOMEN. SKIN ASSESSED. PT EDUCATED ON NPO STATUS. ORAL CARE PROVIDED. WILL CONTINUE PLAN OF CARE.
[2019-03-09 16:04] VITALS: BP 130/88
--- NOTE | 2019-03-09 17:50 | NUR ---
PATIENT ARRIVED TO UNIT AT APPROX 1730. ALERT AND ORIENTED X4. ASSESSMENT COMPLETED AND CHARTED. VSS ON ROOM AIR. PATIENT SETTLED INTO ROOM. PATIENT GIVEN PAIN MEDICATION BEFORE TRANSFER TO UNIT BUT ASKING FOR PAIN MEDICATION UPON ARRIVAL. HEATING PAD IN PLACE, DARK AND QUIET ENVIRONMENT PROVIDED FOR RELAXATION. PPN AND FLUIDS INFUSING ORDERED. TOLERATING CLEAR LIQUID DIET ORDERED BY GI. CALL LIGHT PLACED IN REACH AND INSTRUCTED TO USE IT FOR NEEDS. HOURLY ROUNDS. NURSING WILL CONTINUE TO MONITOR.
[2019-03-09 20:00] VITALS: BP 115/60
--- NOTE | 2019-03-10 04:24 | NUR ---
ASSUMED PATIENT CARE AT 1900. PATIENT ALERT AND ORIENTED TIMES FOUR. COMPLAINTS OF PAIN AND MOANING THROUGHT THE NIGHT. RN ATTEMPTED TO GIVE PATIENT ORAL PAIN MEDICATION AND PATIENT STATED "THAT WILL NOT CUT IT, I WILL TAKE THE OTHER STUFF AND THEN TAKE THAT IN 2 HOURS" HEATING PAD REMAINS IN PLACE OVER ABD. IV PATENT AND INFUSING NS AT THIS TIME. DIGITAL ASSOCIATE AND HOURLY ROUNDING COMPLETED DOCUMENTED
[2019-03-10 08:00] VITALS: BP 144/82
[2019-03-10 16:16] VITALS: BP 129/75
--- NOTE | 2019-03-10 16:33 | NUR ---
SHIFT NOTE - PT REQUESTING MULTIPLE PAIN MEDS AND NAUSEA MEDS THIS SHIFT. PT STATED HE DID NOT TOLERATE HIS SOFT DIET THIS AFTERNOON "VERY WELL". WILL CONTINUE TO MONITOR.
[2019-03-10 20:00] VITALS: BP 126/81
[2019-03-10 20:03] LABS: URINE BILIRUBIN NEGATIVE (Negative); URINE BLOOD NEGATIVE (Negative); URINE CLARITY CLEAR; URINE COLOR YELLOW; URINE GLUCOSE-RANDOM NEGATIVE (Negative); URINE KETONES NEGATIVE (Negative); URINE LEUKOCYTES-REFLEX NEGATIVE (Negative); URINE NITRITE-REFLEX NEGATIVE (Negative); URINE PROTEIN NEGATIVE (Negative); URINE UROBILINOGEN 0.2 E.U./dl (0.2-1.0)
[2019-03-10 20:11] LABS: AMP/METHAMP Negative (Negative); BARBITURATES Negative (Negative); BENZODIAZEPINES Negative (Negative); COCAINE Negative (Negative); METHADONE Negative (Negative); OPIATES POSITIVE (Negative); PCP Negative (Negative); THC Negative (Negative)
--- NOTE | 2019-03-11 06:19 | NUR ---
this nurse assumes care of pt at 1930, pt is alert and oriented, complains of RUQ pain, pt request PO pain meds frequently, describes his pain as sharp pain that comes and goes, pt continues to experience nausea, controlled with iv meds, pt says he tried to eat solid foods but this increased his abd pain, pt agreed to try some jello this shift, the jello remains on bedside table unopened, pt up to bathroom independently, denies concerns, resting in bed quietly at this time, no s/s acute distress
[2019-03-11 08:00] VITALS: BP 132/85
[2019-03-11 16:00] VITALS: BP 127/73
--- NOTE | 2019-03-11 16:32 | NUR ---
ASSUMED CARE OF PATIENT AT APPROX 0730. ALERT AND ORIENTED X4. ASSESSMENT COMPLETED AND CHARTED. VSS ON ROOM AIR. PAIN AND NAUSEA MANAGED WITH HYDROCODONE, IV FENTANYL AND ZOFRAN. FLUIDS IN FUSED AND DC'D ORDERED. PATIENT HAD A SHOWER TODAY AND HAS BEEN WALKING THE UNIT OCCOASSIONALLY. UP AD FRANCES AND AMBULATES STEADILY. SOFT DIET NOT TOLERATED, ACCORDING TO PATIENT THERE WAS A HUGE SPIKE IN PAIN AFTER TRYING TO EAT BREAKFAST. DIET CHANGED BACK TO CLEAR LIQUIDS AFTER BREAKFAST AND PATIENT TOLERATING WELL. HOURLY ROUNDS COMPLETED. CALL LIGHT WITHIN REACH. NURSING WILL CONTINUE TO MONITOR.
[2019-03-11 20:00] VITALS: BP 127/62
[2019-03-12] VITALS: BP 126/76
[2019-03-12 07:50] VITALS: BP 130/78
[2019-03-12 16:00] VITALS: BP 113/63
--- NOTE | 2019-03-12 17:46 | NUR ---
ASSUMED CARE OF PATIENT AT APPROX 0730. ALERT AND ORIENTED X4. ASSESSMENT COMPLETED AND CHARTED. VSS ON ROOM AIR. PAIN HAS BEEN MANAGED WITH IV FENTANYL AND HYDROCODONE. UP AD FRANCES IN THE ROOM AND WALKING THE UNIT OCCOASSIONALLY. PATIENT STATES THAT HIS PAIN IS GETTING BETTER WITH MEALS. USING LESS PAIN MEDICATION THIS SHIFT, SHOWING IMPROVEMENT IN PAIN ON SOFT FIBER RESTRICTED DIET. HOPEFUL TO GO HOME TOMORROW. HOURLY ROUNDS COMPLETED. CALL LIGHT IN REACH. NURSING WILL CONTINUE TO MONITOR.
[2019-03-12 20:25] VITALS: BP 110/70
[2019-03-13 04:35] LABS: HEMATOCRIT 28.9 % (42.0-52.0); HEMOGLOBIN 8.6 gm/dL (14.0-18.0); MCH 19.5 pg (26.0-34.0); MCHC 29.8 g/dL (28.0-37.0); MCV 65.6 fL (80.0-100.0); MPV 8.7 fl. (7.2-11.1); RBC 4.41 mil/uL (4.50-6.00); WBC 5.1 thou/uL (4.0-11.0)
[2019-03-13 05:07] LABS: CALCIUM 9.1 mg/dL (8.5-10.1); CREATININE 0.9 mg/dL (0.6-1.3); MAGNESIUM 1.9 mg/dL (1.8-2.4); POTASSIUM 4.2 mmol/L (3.5-5.1)
--- NOTE | 2019-03-13 05:34 | NUR ---
PT REMAINED ALERT AND ORIENTED. VITALS, SpO2 STABLE, MEDS GIVEN ORDERED. PAIN CONTROLED WITH HYDROCODONE. PT STATED DISCOMFORT IN HIS IV SITE. IV DISCONTINUED PER PT REQUEST. PT REQUESTED IV NOT BE STARTED AT THIS TIME. WILL CONTINUE TO MONITOR.
[2019-03-13 08:00] VITALS: BP 108/62
[2019-03-13] MEDS ORDERED: PANTOPRAZOLE SO40 M1 PO (08:56)
[2019-03-13] MEDS ORDERED: PANCRELIPASE PO (08:56)
[2019-03-13] MEDS ORDERED: HYDROCODON-ACE1 EAC7 PO (08:56)
[2019-03-13] MEDS ORDERED: SENNA PLUS TAB1 EACH PO (08:56)
[2019-03-13] MEDS ORDERED: LIDOPATCH1 EACH TOP (08:56)
[2019-03-13 11:05] VITALS: BP 108/62
--- NOTE | 2019-03-13 13:14 | NUR ---
PT DC TO HOME WALKED OUT WITH NURSING STAFF AT 1300. NO IV. PAPER PRESCRIPTIONS AND CARE NOTES GIVEN. PERSONAL ITEMS SENT WITH PT.
== END 2019-03-13 13:00 | disposition home or self-care (01) | DRG 438 ==
LOC: M.ERS 15:41 → M.2W 17:39 → M.TBA-ER 17:39 → M.2W 19:15 → M.ORTHSURG 03-09 17:07
PROVIDERS: Internal Medicine Gastroenterology; Physician Assistant; ADMIT Internal Medicine
PROC: 0DJ08ZZ Inspection of Upper Intestinal Tract, Via Natural or Artificial Opening Endoscopic (ICD-10-PCS; principal; 2019-03-09)
DX: K85.20 Alcohol induced acute pancreatitis without necrosis or infection (principal); N17.0 Acute kidney failure with tubular necrosis; K44.9 Diaphragmatic hernia without obstruction or gangrene; F32.9 Major depressive disorder, single episode, unspecified; F10.10 Alcohol abuse, uncomplicated; D50.9 Iron deficiency anemia, unspecified; F17.210 Nicotine dependence, cigarettes, uncomplicated; Z87.81 Personal history of (healed) traumatic fracture; Z79.899 Other long term (current) drug therapy; Z80.0 Family history of malignant neoplasm of digestive organs; Z82.49 Family history of ischemic heart disease and other diseases of the circulatory system

== ENCOUNTER 2019-08-08 14:09 | Inpatient (IN) | payer OTHER ==
[~2019-08-08] VITALS: Ht 195.6 cm; Wt 63.9 kg
[~2019-08-08 14:09] MED LIST changes: +HYDROCODON-ACE1 EAC7 PO; +LIDOPATCH1 EACH TOP; +PANCRELIPASE PO; +PANTOPRAZOLE SO40 M1 PO; +SENNA PLUS TAB1 EACH PO
[2019-08-08 14:24] VITALS: BP 111/59
[2019-08-08 14:42] LABS: ABSOLUTE EOSINOPHILS 0.1 thou/uL (0.0-0.7); ABSOLUTE LYMPHOCYTES 1.5 thou/uL (0.8-5.3); ABSOLUTE MONOCYTES 0.6 thou/uL (0.0-1.2); ABSOLUTE NEUTROPHILS 6.6 thou/uL (1.6-8.1); BASOPHILS 0.5 %; EOSINOPHILS 0.7 %; HEMATOCRIT 37.1 % (42.0-52.0); HEMOGLOBIN 11.7 gm/dL (14.0-18.0); MCH 22.9 pg (26.0-34.0); MCHC 31.6 g/dL (28.0-37.0); MCV 72.6 fL (80.0-100.0); MONOCYTES 6.9 %; MPV 8.3 fl. (7.2-11.1); NUCLEATED RBCS 0 /100WBC; PLATELET COUNT* 305 thou/uL (150-400); POLYS 74.9 %; RBC 5.12 mil/uL (4.50-6.00); RDW-CV 22.2 % (10.5-14.5); WBC 8.8 thou/uL (4.0-11.0)
[2019-08-08 14:50] LABS: ANION GAP 11 mmol/L (7-16); BUN 9 mg/dL (7-18); CALCIUM 9.3 mg/dL (8.5-10.1); CHLORIDE 103 mmol/L (98-107); CO2 26 mmol/L (21-32); GLUCOSE 118 mg/dL (70-99); SODIUM 140 mmol/L (136-145)
[2019-08-08 15:07] LABS: ALBUMIN 4.3 g/dL (3.4-5.0); ALKALINE PHOSPHATASE 88 U/L (46-116); LIPASE 1664 U/L (73-393); SGOT 21 U/L (15-37); SGPT 37 U/L (30-65); TOTAL BILIRUBIN 1.4 mg/dL (<0.1-1.0); TOTAL PROTEIN 7.5 g/dL (6.4-8.2); TROPONIN-I LEVEL <0.06 ng/mL (<0.06)
[2019-08-08 15:17] LABS: PLATELET ESTIMATE ADEQUATE
[2019-08-08 15:18] LABS: HYPOCHROMASIA 1+
[2019-08-08 15:19] LABS: ANISOCYTOSIS 2+; MICROCYTES 1+
--- NOTE | 2019-08-08 15:44 | NUR ---
KATHI NOTIFIED UPON PT RETURN FROM CT. 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
[2019-08-08 16:38] VITALS: BP 115/71
[2019-08-08 16:45] VITALS: BP 134/85
[2019-08-08 17:57] LABS: URINE BILIRUBIN NEGATIVE (Negative); URINE BLOOD NEGATIVE (Negative); URINE CLARITY CLEAR; URINE COLOR YELLOW; URINE GLUCOSE-RANDOM NEGATIVE (Negative); URINE KETONES 2+ (Negative); URINE LEUKOCYTES-REFLEX NEGATIVE (Negative); URINE NITRITE-REFLEX NEGATIVE (Negative); URINE PROTEIN NEGATIVE (Negative); URINE UROBILINOGEN 0.2 E.U./dl (0.2-1.0)
--- NOTE | 2019-08-08 18:06 | NUR ---
PT ADMITTED TO FLOOR FROM ER. PT A&OX3 VSS. PT ARRIVES ON UNIT WITH ALL PERSONAL BELONGINGS. PT TRANSFERS FROM ER CART TO BED W/O ASSISTANCE, GAIT STEADY. PT ARRIVES TO FLOOR WITH NS BOLUS RUNNING IN RAC ORDERED. IV PAIN MEDICATION ADMINISTERED ORDERED TO ADDRESS PT C/O ABD PAIN. IV NS RUNNING AT 250 ML/HR ORDERED BY DR ZAMORA. PT STATES UNDERSTANDING OF NPO STATUS AT THIS TIME. PT IS HOWEVER ALLOWED SIPS OF WATER WITH PO MEDICATIONS. PT CONTINUES TO REST IN BED WITH CALL LIGHT AND CELL PHONE IN REACH. UA COLLECTED AND SENT DIRECTED.
[2019-08-08 18:07] LABS: AMP/METHAMP Negative (Negative); BARBITURATES Negative (Negative); BENZODIAZEPINES Negative (Negative); COCAINE Negative (Negative); METHADONE Negative (Negative); OPIATES Negative (Negative); PCP Negative (Negative); THC Negative (Negative)
[2019-08-08] MEDS ORDERED: PROTONIX40 M1 PO (18:20)
[2019-08-08 20:48] VITALS: BP 109/72
[2019-08-09 05:01] LABS: HEMATOCRIT 31.9 % (42.0-52.0); HEMOGLOBIN 9.9 gm/dL (14.0-18.0); MCH 22.8 pg (26.0-34.0); MCV 73.6 fL (80.0-100.0); MPV 8.3 fl. (7.2-11.1); RBC 4.34 mil/uL (4.50-6.00); RDW-CV 21.7 % (10.5-14.5); WBC 9.1 thou/uL (4.0-11.0)
[2019-08-09 05:25] LABS: CREATININE 0.6 mg/dL (0.6-1.3); MAGNESIUM 1.6 mg/dL (1.8-2.4); POTASSIUM 3.5 mmol/L (3.5-5.1)
--- NOTE | 2019-08-09 05:29 | NUR ---
PAIN WAS AN ISSUE, HE WAS IN BED HAUNCHED OVER HOLDING HIS STOMACH MANY TIMES. I ADMINISTERED 75 MCG FENTANYL Q2 AND ZOFRAN Q4. NS IS STILL AT 250 MLS/HR. HE DID GET SOME RELIEF AFTER THE FENTANYL AND ABLE TO SLEEP. WILL CONTINUE TO MONITOR.
[2019-08-09 07:15] VITALS: BP 126/77
[2019-08-09 08:15] VITALS: BP 126/77
[2019-08-09 12:00] VITALS: BP 130/73
--- NOTE | 2019-08-09 14:04 | EKG ---
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 : 1985 Requested By: Leslie Talavera Order Number: [id number] MD: Nelson Soliz Measurements Intervals [place] Rate: 79 P: 80 [place]: 139 QRS: 77 QRSD: 96 T: 74 QT: 413 QTc: 474 Interpretive Statements Sinus rhythm Probable left atrial enlargement RSR' in V1 or V2, probably normal variant ST elev, probable normal early repol pattern Borderline prolonged QT interval Compared to ECG 03/07/2019 18:12:08 RSR' in V1 or V2 now present ST (T wave) deviation still present Electronically Signed On 08-09-2019 14:04:19 CDT by Nelson Soliz [email or web address] <ELECTRONICALLY SIGNED> By: Nelson Soliz MD, FACC 08/09/19 1404 1439 1439 Nelson Soliz MD, FAC /EPI
[2019-08-09 16:00] VITALS: BP 128/75
--- NOTE | 2019-08-09 17:05 | NUR ---
PT A&OX3 NO C/O PAIN AT THIS TIME. PT REQUESTS TO HAVE IV PAIN MED AT SAME TIME ZOFRAN. VSS. PT RESTS QUIETLY IN BED WITH CALL LIGHT IN REACH. PT STATES UNDERSTANDING OF HIS CONTINUED NPO STATUS. MAG LEVEL THIS AM 1.6, IV MAG ADMINISTERED ORDERED. F/U MAG LEVEL 2.1
[2019-08-09 20:00] VITALS: BP 129/72
--- NOTE | 2019-08-10 05:20 | NUR ---
PATIENT STATED HE HADNT BEEN GETTING MUCH SLEEP. GAVE MELATONIN FIRST DIDNT HELP MUCH SO THEN GAVE AMBIEN 5MG PATIENT WAS ABLE TO GET A COUPLE HOURS OF SLEEP. PATIENT STILL NEEDING PAIN MEDICINE ABOUT EVERY TWO HOURS AND ZOFRAN EVERY 4. IV FLUIDS CONTINUE TO INFUSE ORDERED. WILL CONTINUE TO MONITOR.
[2019-08-10 07:55] VITALS: BP 127/85
[2019-08-10 09:32] LABS: ABSOLUTE EOSINOPHILS 0.2 thou/uL (0.0-0.7); ABSOLUTE LYMPHOCYTES 0.9 thou/uL (0.8-5.3); ABSOLUTE MONOCYTES 0.5 thou/uL (0.0-1.2); BASOPHILS 0.5 %; EOSINOPHILS 2.5 %; HEMATOCRIT 31.8 % (42.0-52.0); LYMPHOCYTES 13.8 %; MCH 22.8 pg (26.0-34.0); MCHC 31.3 g/dL (28.0-37.0); MCV 72.8 fL (80.0-100.0); MONOCYTES 7.6 %; MPV 7.6 fl. (7.2-11.1); NUCLEATED RBCS 0 /100WBC; PLATELET COUNT* 229 thou/uL (150-400); POLYS 75.6 %; RBC 4.37 mil/uL (4.50-6.00); RDW-CV 21.1 % (10.5-14.5); WBC 6.7 thou/uL (4.0-11.0)
[2019-08-10 09:41] LABS: ALBUMIN 3.4 g/dL (3.4-5.0); CALCIUM 9.1 mg/dL (8.5-10.1); CREATININE 0.7 mg/dL (0.6-1.3); POTASSIUM 4.3 mmol/L (3.5-5.1); TOTAL BILIRUBIN 0.9 mg/dL (<0.1-1.0); TOTAL PROTEIN 6.4 g/dL (6.4-8.2)
[2019-08-10 10:25] LABS: PLATELET ESTIMATE ADEQUATE
[2019-08-10 15:00] VITALS: BP 129/82
--- NOTE | 2019-08-10 18:06 | NUR ---
PATIENT RESTING IN BED. PATIENT IS UP AD FRANCES IN ROOM. PATIENT IS TOLERATING CLEAR LIQUID DIET. PATIENT HAS COMPLAINTS OF ABDOMINLA PAIN AND NAUSEA BUT RELIEVED WITH ORAL PAIN MEDICATION AND ZOFRAN. PATIENT DENIES ANY NEEDS AT THIS TIME. CALL LIGHT WITHIN REACH.
[2019-08-10 22:30] VITALS: BP 136/77
--- NOTE | 2019-08-11 06:26 | NUR ---
PATIENT SLEPT PART OF THE NIGHT. IV FLUIDS CONTINUE TO INFUSE ORDERED. PATIENT NEEDED FENTANYL ONCE FOR BREAKTHROUGH PAIN OTHERWISE PAIN PILLS WERE GIVEN TWICE AND NAUSEA MEDICINE TWICE. PATIENT IS POSSIBLY GOING HOME TODAY. WILL CONTINUE TO MONITOR.
[2019-08-11 07:30] VITALS: BP 134/84
[2019-08-11 11:57] VITALS: BP 134/84
[2019-08-11] MEDS ORDERED: OXYCODONE HCL 55 MG PO (12:07)
--- NOTE | 2019-08-11 15:27 | NUR ---
PT DISCHARGED TO HOME AT 1500 BY WHEELCHAIR WITH A VOLUNTEER AND PARENT. IV OUT. PAIN CONTROLLED. PT STABLE UPON DISCHARGE. PAPERSCRIPT AND CARE NOTES GIVEN. PERSONAL ITEMS SENT WITH PT
--- NOTE | 2019-08-30 14:49 | CON ---
[address] [address] CONSULTATION Name: ELIJAH HAMMOND Room: [address] IN ..#: [id number] Admission: 08/08/19 Attend Phys: Hayder Rose MD Discharge: 08/11/19 Date of : 83 Report #: [id number] THIS REPORT FOR: //name// CC: ANDI physician/PCP Hayder Rose DATE OF SERVICE: 08/10/2019 HISTORY OF PRESENT ILLNESS: This is a pleasant 34-year-old gentleman known to our service from his previous admissions for pancreatitis, presenting with another episode of abdominal pain. The patient reports the pain began 2 days back, progressively became severe in intensity and prompted his ER visit. The patient reports that pain relieved only when he received pain medication and IV fluids in the hospital. The patient reports the pain is located in the epigastrium. It is nonradiating, associated with nausea, but no vomiting. This is the patient's seventh documented episode of pancreatitis. It should be noted that the patient reports that he has had alcohol a few weeks before and it appears that he is downplaying the amount of alcohol he is consuming. Further, the patient also has a [id number] history of smoking and smokes about half pack per day. He denies any recreational drug use. PAST MEDICAL HISTORY: Alcohol abuse, depression, pancreatitis. PAST SURGICAL HISTORY: The patient has a remote history of leg fracture. FAMILY HISTORY: No history of pancreatic or colonic malignancies. SOCIAL HISTORY: As mentioned above, the patient claims that he is consuming some alcohol every time he presents with an episode of pancreatitis and I suspect he is downplaying the amount of alcohol he is consuming. He also has half pack per day history of smoking. REVIEW OF SYSTEMS: Negative except for the abdominal pain. PHYSICAL EXAMINATION: VITAL SIGNS: Temperature 36.9, pulse rate 72, respirations 20, blood pressure 129/82. GENERAL: The patient is alert, awake, oriented x 3. HEENT: Pupils are equal, round, reactive to light and accommodation. Mucous membranes are moist. There is no congestion. LUNGS: Clear to auscultation bilaterally. CARDIOVASCULAR: Rate and rhythm regular, S1, S2 present. ABDOMEN: Soft. There is no distention, guarding or rigidity. EXTREMITIES: Warm, well perfused. [place] [address] CONSULTATION Name: KATHERINELEXELIJAH Room: [address]#: [id number] Admission: 08/08/19 Attend Phys: Hayder Rose MD Discharge: 08/11/19 Date of : 83 Report #: [id number] SKIN: Warm and dry. LABORATORY DATA: Hemoglobin 10.0, hematocrit 31.8, platelet count 229, WBC count 6.7. Sodium 138, potassium 4.3, chloride 103, bicarbonate 21, BUN 6, creatinine 0.7. Iron 17, TIBC 343. Iron saturation is 5%. Lipase on presentation 1664, mild peripancreatic fat stranding suggestive of pancreatitis. ASSESSMENT AND PLAN: A pleasant 34-year-old gentleman with history of alcohol abuse, presenting with recurrent episode of pancreatitis. The patient has had so far 7 documented episodes of pancreatitis. Continue conservative management with IV fluids, pain medication for now. The patient will need endoscopic ultrasound as outpatient for ruling out chronic pancreatitis. The patient also appears to have iron deficiency anemia and will need EGD, colonoscopy and this also can be arranged as outpatient. Thank you for this consultation. <ELECTRONICALLY SIGNED> By: Dao Preciado MD 08/30/19 1449 190 193Dao Preciado MD /nt
== END 2019-08-11 15:00 | disposition home or self-care (01) | DRG 439 ==
LOC: M.ERS 14:09 → M.3W 15:53 → M.TBA-ER 15:53 → M.3W 16:45
PROVIDERS: Internal Medicine; Nurse Practitioner Family; ADMIT Internal Medicine
DX: K85.00 Idiopathic acute pancreatitis without necrosis or infection (principal); K56.7 Ileus, unspecified; K85.20 Alcohol induced acute pancreatitis without necrosis or infection; F32.9 Major depressive disorder, single episode, unspecified; F12.90 Cannabis use, unspecified, uncomplicated; F17.210 Nicotine dependence, cigarettes, uncomplicated; E86.9 Volume depletion, unspecified; D64.9 Anemia, unspecified; Z80.0 Family history of malignant neoplasm of digestive organs; Z82.49 Family history of ischemic heart disease and other diseases of the circulatory system; Z79.899 Other long term (current) drug therapy

== ENCOUNTER 2020-02-06 16:23 | Inpatient (IN) | payer OTHER ==
[~2020-02-06] VITALS: Ht 195.6 cm; Wt 66.7 kg
--- NOTE | ~2020-02-06 | CON ---
[address] [address] CONSULTATION Name: ELIJAH HAMMOND Room: [address] IN M.R.#: [id number] Admission: 02/06/20 Attend Phys: Edward Jerry MD Discharge: Date of : 83 Report #: [id number] THIS REPORT FOR: //name// cc: ANDI Zhang family physician/PCP ANDI Zhang family physician/PCP ~ THIS REPORT FOR: //name// CC: Edward Jerry [facility] physician/PCP DATE OF SERVICE: 02/07/2020 INDICATION FOR CONSULT: Recurrent pancreatitis. HISTORY OF PRESENT ILLNESS: This is a 34-year-old male with history of alcoholism, who reports that he has not been drinking for a while. He presents with epigastric pain, nausea, vomiting. Since admission, the patient had CT of abdomen and pelvis, which showed evidence of peripancreatic stranding without any pseudocyst formation. His lipase was also elevated to 2800. Total bilirubin is 1.4, but liver enzymes are all within normal limits. His total cholesterol and triglycerides are within normal limits as well. PAST MEDICAL HISTORY: Significant for history of recurrent pancreatitis, alcohol dependence and abuse, depression, surgery for leg fracture. ALLERGIES: No known drug allergy. MEDICATIONS: Include pancreatic enzymes. SOCIAL HISTORY: The patient denies alcohol use at this time, but has had history of alcoholism. He also smokes regularly. FAMILY HISTORY: Negative for GI malignancy or pancreatic disease. PHYSICAL EXAMINATION: VITAL SIGNS: Reveal blood pressure of 132/74, respiration 18, pulse 84, temperature 98.4. LUNGS: Clear. CARDIOVASCULAR: Regular. ABDOMEN: Soft, tender to palpation in the epigastric region. Bowel sounds are positive. LABORATORY DATA: Reveal sodium of 138, potassium 3.7, BUN is 9, creatinine 0.7, glucose 107, lipase is 2892, total bilirubin 1.4, calcium 8.1. Liver enzymes are within normal limits. WBC is 10, hemoglobin 10.7 with platelet [place] 231[place] [address] CONSULTATION Name: ELIJAH HAMMOND Room: [address] IN ..#: [id number] Admission: 02/06/20 Attend Phys: Edward Jerry MD Discharge: Date of : 83 Report #: [id number] IMAGING: As discussed above. ASSESSMENT AND PLAN: The patient with recurrent pancreatitis as this is his third episode of pancreatitis. We will continue hydrating at 200 mL an hour and since the patient is not responding to fentanyl, we will consider Dilaudid 1-2 q.2-4h. I will recommend endoscopic ultrasound to further evaluate his recurrent pancreatitis. By: 1727 1739Yolanda Calzada MD /nt
[~2020-02-06 16:23] MED LIST changes: +PROTONIX40 M1 PO
[2020-02-06 16:29] VITALS: BP 134/70
[2020-02-06 16:47] LABS: ABSOLUTE BASOPHILS 0.1 thou/uL (0.0-0.2); ABSOLUTE EOSINOPHILS 0.1 thou/uL (0.0-0.7); ABSOLUTE LYMPHOCYTES 1.9 thou/uL (0.8-5.3); ABSOLUTE MONOCYTES 0.8 thou/uL (0.0-1.2); ABSOLUTE NEUTROPHILS 6.7 thou/uL (1.6-8.1); BASOPHILS 0.8 %; EOSINOPHILS 1.1 %; HEMATOCRIT 37.9 % (42.0-52.0); HEMOGLOBIN 12.3 gm/dL (14.0-18.0); MCHC 32.5 g/dL (28.0-37.0); MCV 79.9 fL (80.0-100.0); MONOCYTES 8.1 %; MPV 8.2 fl. (7.2-11.1); NUCLEATED RBCS 0 /100WBC; PLATELET COUNT* 347 thou/uL (150-400); RBC 4.75 mil/uL (4.50-6.00); RDW-CV 18.8 % (10.5-14.5); WBC 9.5 thou/uL (4.0-11.0)
[2020-02-06 16:51] LABS: CALCIUM 8.8 mg/dL (8.5-10.1); CREATININE 1.1 mg/dL (0.6-1.3); POTASSIUM 4.5 mmol/L (3.5-5.1)
[2020-02-06 16:55] LABS: ALBUMIN 4.1 g/dL (3.4-5.0); TOTAL BILIRUBIN 1.4 mg/dL (<0.1-1.0); TOTAL PROTEIN 7.2 g/dL (6.4-8.2)
[2020-02-06 20:17] VITALS: BP 121/70
[2020-02-06 20:30] VITALS: BP 125/75
[2020-02-07 01:57] LABS: AMP/METHAMP Negative (Negative); BARBITURATES Negative (Negative); BENZODIAZEPINES Negative (Negative); COCAINE Negative (Negative); METHADONE Negative (Negative); OPIATES POSITIVE (Negative); PCP Negative (Negative); THC Negative (Negative)
[2020-02-07 04:50] LABS: HEMATOCRIT 33.3 % (42.0-52.0); HEMOGLOBIN 10.7 gm/dL (14.0-18.0); MCH 25.8 pg (26.0-34.0); MCHC 32.1 g/dL (28.0-37.0); MCV 80.4 fL (80.0-100.0); MPV 8.3 fl. (7.2-11.1); NUCLEATED RBCS 0 /100WBC; RBC 4.14 mil/uL (4.50-6.00); RDW-CV 18.4 % (10.5-14.5)
[2020-02-07 05:15] LABS: PLATELET COUNT* 231 thou/uL (150-400)
[2020-02-07 05:50] LABS: ANION GAP 9 mmol/L (7-16); BUN 9 mg/dL (7-18); CALCIUM 8.1 mg/dL (8.5-10.1); CHLORIDE 105 mmol/L (98-107); CHOLESTEROL 108 mg/dL (<200); CO2 24 mmol/L (21-32); CREATININE 0.7 mg/dL (0.6-1.3); GLUCOSE 107 mg/dL (70-99); HDL CHOLESTEROL 56 mg/dL (>40); LDL CHOLESTEROL 38 mg/dL (<100); POTASSIUM 3.7 mmol/L (3.5-5.1); SODIUM 138 mmol/L (136-145); TC:HDL 1.9 Ratio (Not establshd); TRIGLYCERIDE 74 mg/dL (<150); VLDL 15 mg/dL (<40)
[2020-02-07 05:53] LABS: ABSOLUTE LYMPHOCYTES 0.5 thou/uL (0.8-5.3); ABSOLUTE MONOCYTES 0.2 thou/uL (0.0-1.2); ABSOLUTE NEUTROPHILS 9.3 thou/uL (1.6-8.1)
[2020-02-07 05:54] LABS: ANISOCYTOSIS 1+; PLATELET ESTIMATE ADEQUATE; POIKILOCYTOSIS 1+
[2020-02-07 05:55] LABS: SERUM ASSESSMENT Clear
[2020-02-07 09:15] VITALS: BP 130/79
--- NOTE | 2020-02-07 10:45 | EKG ---
[place] [address] ELECTROCARDIOGRAM REPORT Name: ELIJAH HAMMOND Room: [address] ADM IN .R.#: [id number] Admission: 02/06/20 Attend Phys: Edward Jerry, Discharge: Date of : 83 Date of Service: 02/06/20 1632 Report #: [id number] THIS REPORT FOR: //name// [facility] ED Test Date: 2020-02-06 Test Time: 16:32:01 Pat Name: ELIJAH HAMMOND Department: Room: 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
[2020-02-07 16:00] VITALS: BP 132/74
[2020-02-07 20:00] VITALS: BP 140/77
[2020-02-08 04:46] LABS: ABSOLUTE EOSINOPHILS 0.1 thou/uL (0.0-0.7); ABSOLUTE LYMPHOCYTES 1.1 thou/uL (0.8-5.3); ABSOLUTE MONOCYTES 0.9 thou/uL (0.0-1.2); ABSOLUTE NEUTROPHILS 7.6 thou/uL (1.6-8.1); BASOPHILS 0.2 %; EOSINOPHILS 1.3 %; HEMATOCRIT 32.5 % (42.0-52.0); HEMOGLOBIN 10.5 gm/dL (14.0-18.0); LYMPHOCYTES 11.7 %; MCHC 32.3 g/dL (28.0-37.0); MCV 80.5 fL (80.0-100.0); MONOCYTES 9.3 %; MPV 8.9 fl. (7.2-11.1); NUCLEATED RBCS 0 /100WBC; PLATELET COUNT* 210 thou/uL (150-400); POLYS 77.5 %; RBC 4.04 mil/uL (4.50-6.00); RDW-CV 18.6 % (10.5-14.5); WBC 9.8 thou/uL (4.0-11.0)
[2020-02-08 05:01] LABS: ALBUMIN 3.3 g/dL (3.4-5.0); CREATININE 0.7 mg/dL (0.6-1.3); POTASSIUM 3.5 mmol/L (3.5-5.1); TOTAL BILIRUBIN 0.9 mg/dL (<0.1-1.0)
[2020-02-08 08:00] VITALS: BP 121/69
[2020-02-08 11:30] VITALS: BP 95/68
[2020-02-08 17:00] VITALS: BP 120/68
[2020-02-08 20:00] VITALS: BP 126/86
[2020-02-09 00:01] VITALS: BP 126/87
[2020-02-09 04:27] LABS: ABSOLUTE EOSINOPHILS 0.2 thou/uL (0.0-0.7); ABSOLUTE LYMPHOCYTES 1.4 thou/uL (0.8-5.3); ABSOLUTE MONOCYTES 0.6 thou/uL (0.0-1.2); ABSOLUTE NEUTROPHILS 3.1 thou/uL (1.6-8.1); BASOPHILS 0.8 %; HEMATOCRIT 29.1 % (42.0-52.0); HEMOGLOBIN 9.4 gm/dL (14.0-18.0); LYMPHOCYTES 26.3 %; MCHC 32.3 g/dL (28.0-37.0); MCV 80.5 fL (80.0-100.0); MONOCYTES 10.9 %; MPV 8.7 fl. (7.2-11.1); NUCLEATED RBCS 0 /100WBC; PLATELET COUNT* 172 thou/uL (150-400); RBC 3.61 mil/uL (4.50-6.00); RDW-CV 18.7 % (10.5-14.5); WBC 5.4 thou/uL (4.0-11.0)
[2020-02-09 05:12] LABS: ALBUMIN 2.9 g/dL (3.4-5.0); CREATININE 0.7 mg/dL (0.6-1.3); POTASSIUM 3.7 mmol/L (3.5-5.1); TOTAL BILIRUBIN 0.5 mg/dL (<0.1-1.0); TOTAL PROTEIN 5.8 g/dL (6.4-8.2)
[2020-02-09 07:46] VITALS: BP 125/80
[2020-02-09 15:39] VITALS: BP 120/83
[2020-02-09 20:00] VITALS: BP 148/91
[2020-02-10 08:00] VITALS: BP 129/84
[2020-02-10 10:45] LABS: ABSOLUTE EOSINOPHILS 0.1 thou/uL (0.0-0.7); ABSOLUTE MONOCYTES 0.4 thou/uL (0.0-1.2); ABSOLUTE NEUTROPHILS 2.3 thou/uL (1.6-8.1); BASOPHILS 0.8 %; EOSINOPHILS 3.7 %; HEMATOCRIT 30.9 % (42.0-52.0); HEMOGLOBIN 10.1 gm/dL (14.0-18.0); MCH 26.3 pg (26.0-34.0); MCHC 32.6 g/dL (28.0-37.0); MCV 80.5 fL (80.0-100.0); MONOCYTES 11.4 %; MPV 8.9 fl. (7.2-11.1); NUCLEATED RBCS 0 /100WBC; PLATELET COUNT* 186 thou/uL (150-400); POLYS 59.1 %; RBC 3.83 mil/uL (4.50-6.00); RDW-CV 18.6 % (10.5-14.5); WBC 3.9 thou/uL (4.0-11.0)
[2020-02-10 11:15] LABS: ALBUMIN 3.1 g/dL (3.4-5.0); CALCIUM 8.1 mg/dL (8.5-10.1); CREATININE 0.9 mg/dL (0.6-1.3); POTASSIUM 3.2 mmol/L (3.5-5.1); TOTAL BILIRUBIN 0.3 mg/dL (<0.1-1.0); TOTAL PROTEIN 6.2 g/dL (6.4-8.2)
[2020-02-10 16:06] VITALS: BP 140/87
[2020-02-10 19:45] VITALS: BP 130/81
[2020-02-11 06:23] LABS: ABSOLUTE EOSINOPHILS 0.2 thou/uL (0.0-0.7); ABSOLUTE LYMPHOCYTES 1.2 thou/uL (0.8-5.3); ABSOLUTE MONOCYTES 0.5 thou/uL (0.0-1.2); ABSOLUTE NEUTROPHILS 1.8 thou/uL (1.6-8.1); BASOPHILS 1.1 %; EOSINOPHILS 4.5 %; HEMATOCRIT 32.3 % (42.0-52.0); HEMOGLOBIN 10.6 gm/dL (14.0-18.0); LYMPHOCYTES 33.2 %; MCH 25.9 pg (26.0-34.0); MCHC 32.7 g/dL (28.0-37.0); MCV 79.4 fL (80.0-100.0); MONOCYTES 12.8 %; MPV 8.6 fl. (7.2-11.1); NUCLEATED RBCS 0 /100WBC; PLATELET COUNT* 214 thou/uL (150-400); POLYS 48.4 %; RBC 4.07 mil/uL (4.50-6.00); RDW-CV 19.2 % (10.5-14.5); WBC 3.7 thou/uL (4.0-11.0)
[2020-02-11 06:40] LABS: ALBUMIN 3.2 g/dL (3.4-5.0); CALCIUM 8.6 mg/dL (8.5-10.1); CREATININE 0.7 mg/dL (0.6-1.3); POTASSIUM 3.5 mmol/L (3.5-5.1); TOTAL BILIRUBIN 0.4 mg/dL (<0.1-1.0); TOTAL PROTEIN 6.3 g/dL (6.4-8.2)
[2020-02-11 08:05] VITALS: BP 136/87
[2020-02-11 16:00] VITALS: BP 127/84
[2020-02-11 19:30] VITALS: BP 128/81
[2020-02-12] VITALS: BP 141/80
[2020-02-12 05:42] LABS: ABSOLUTE BASOPHILS 0.1 thou/uL (0.0-0.2); ABSOLUTE EOSINOPHILS 0.2 thou/uL (0.0-0.7); ABSOLUTE LYMPHOCYTES 1.6 thou/uL (0.8-5.3); ABSOLUTE MONOCYTES 0.5 thou/uL (0.0-1.2); ABSOLUTE NEUTROPHILS 2.2 thou/uL (1.6-8.1); BASOPHILS 1.2 %; EOSINOPHILS 5.1 %; HEMATOCRIT 33.3 % (42.0-52.0); HEMOGLOBIN 10.8 gm/dL (14.0-18.0); LYMPHOCYTES 35.1 %; MCH 25.8 pg (26.0-34.0); MCHC 32.4 g/dL (28.0-37.0); MCV 79.8 fL (80.0-100.0); MONOCYTES 10.8 %; MPV 7.7 fl. (7.2-11.1); NUCLEATED RBCS 0 /100WBC; PLATELET COUNT* 219 thou/uL (150-400); POLYS 47.8 %; RBC 4.18 mil/uL (4.50-6.00); RDW-CV 18.9 % (10.5-14.5); WBC 4.5 thou/uL (4.0-11.0)
[2020-02-12 06:19] LABS: ALBUMIN 3.3 g/dL (3.4-5.0); CALCIUM 8.6 mg/dL (8.5-10.1); CREATININE 0.8 mg/dL (0.6-1.3); POTASSIUM 3.8 mmol/L (3.5-5.1); TOTAL BILIRUBIN 0.4 mg/dL (<0.1-1.0); TOTAL PROTEIN 6.4 g/dL (6.4-8.2)
[2020-02-12 07:53] VITALS: BP 124/80
[2020-02-12 10:41] VITALS: BP 124/80
[2020-02-12] MEDS ORDERED: NORCO 5-325 TA1 EAC1 PO (11:18)
[2020-02-12] MEDS ORDERED: ZOFRAN4 MG PO (11:19)
== END 2020-02-12 12:15 | disposition home or self-care (01) | DRG 439 ==
LOC: M.ERS 16:23 → M.TBA-ER 18:54 → M.2W 18:54
PROVIDERS: Family Medicine; Internal Medicine; Nurse Practitioner; ADMIT Internal Medicine
DX: K85.90 Acute pancreatitis without necrosis or infection, unspecified (principal); Z68.1 Body mass index [BMI] 19.9 or less, adult; E44.0 Moderate protein-calorie malnutrition; K86.1 Other chronic pancreatitis; E83.51 Hypocalcemia; F17.210 Nicotine dependence, cigarettes, uncomplicated; F32.9 Major depressive disorder, single episode, unspecified; F10.21 Alcohol dependence, in remission; D64.9 Anemia, unspecified; Z79.899 Other long term (current) drug therapy

== ENCOUNTER 2020-06-05 18:48 | Inpatient (IN) | payer OTHER ==
[~2020-06-05] VITALS: Ht 195.6 cm; Wt 65.3 kg
[~2020-06-05 18:48] MED LIST changes: +NORCO 5-325 TA1 EAC1 PO; +ZOFRAN4 MG PO
[2020-06-05 19:03] VITALS: BP 135/68
[2020-06-05 19:22] LABS: ABSOLUTE BASOPHILS 0.1 thou/uL (0.0-0.2); ABSOLUTE EOSINOPHILS 0.2 thou/uL (0.0-0.7); ABSOLUTE LYMPHOCYTES 1.7 thou/uL (0.8-5.3); ABSOLUTE MONOCYTES 0.8 thou/uL (0.0-1.2); ABSOLUTE NEUTROPHILS 6.7 thou/uL (1.6-8.1); BASOPHILS 0.9 %; EOSINOPHILS 2.5 %; HEMOGLOBIN 11.4 gm/dL (14.0-18.0); LYMPHOCYTES 18.3 %; MCH 27.4 pg (26.0-34.0); MCHC 33.4 g/dL (28.0-37.0); MONOCYTES 8.1 %; MPV 8.3 fl. (7.2-11.1); NUCLEATED RBCS 0 /100WBC; PLATELET COUNT* 264 thou/uL (150-400); POLYS 70.2 %; RBC 4.15 mil/uL (4.50-6.00); RDW-CV 17.6 % (10.5-14.5); WBC 9.5 thou/uL (4.0-11.0)
[2020-06-05 19:37] LABS: CALCIUM 8.3 mg/dL (8.5-10.1); CREATININE 1.1 mg/dL (0.6-1.3); POTASSIUM 3.7 mmol/L (3.5-5.1)
[2020-06-05 19:42] LABS: ALBUMIN 4.1 g/dL (3.4-5.0); TOTAL BILIRUBIN 0.8 mg/dL (<0.1-1.0)
[2020-06-05 21:37] LABS: URINE BILIRUBIN NEGATIVE (Negative); URINE BLOOD 3+ (Negative); URINE CLARITY CLEAR; URINE COLOR YELLOW; URINE GLUCOSE-RANDOM NEGATIVE (Negative); URINE KETONES 2+ (Negative); URINE LEUKOCYTES-REFLEX NEGATIVE (Negative); URINE NITRITE-REFLEX NEGATIVE (Negative); URINE PROTEIN NEGATIVE (Negative); URINE UROBILINOGEN 0.2 E.U./dl (0.2-1.0)
[2020-06-05 21:47] LABS: HYALINE CASTS 0-3 Few /LPF (None Seen)
[2020-06-05 21:48] LABS: CRYSTALS None Seen /LPF (None Seen); SQUAMOUS NONE SEEN /LPF (0-3)
[2020-06-05 21:49] LABS: BACTERIA-REFLEX None Seen /HPF (None Seen); URINE WBC-REFLEX None Seen /HPF (0-5)
[2020-06-05 21:50] LABS: MUCUS None Seen strn/LPF (None Seen)
[2020-06-05 22:29] VITALS: BP 133/83
[2020-06-05 23:30] VITALS: BP 122/80
[2020-06-06 04:00] VITALS: BP 123/69
--- NOTE | 2020-06-06 04:27 | NUR ---
PT CONTINUES TO HAVE ABD PAIN AND NAUSEA, ORDER WAS OBTAINED FROM DR Gian BURGESS FOR ZOFRAN, PT HAS BEEN COMFORTABLE SINCE ADMIN OF THIS, FLUIDS INFUSING, PT SAFETY MEASURES IN PLACE, WCTM
[2020-06-06 08:05] VITALS: BP 114/70
--- NOTE | 2020-06-06 08:48 | EKG ---
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
[2020-06-06 12:22] LABS: ALBUMIN 3.5 g/dL (3.4-5.0); CALCIUM 7.7 mg/dL (8.5-10.1); CREATININE 0.7 mg/dL (0.6-1.3); POTASSIUM 3.8 mmol/L (3.5-5.1); TOTAL BILIRUBIN 1.1 mg/dL (<0.1-1.0); TOTAL PROTEIN 6.3 g/dL (6.4-8.2)
--- NOTE | 2020-06-06 14:39 | NUR ---
CM SPOKE TO THE PT TO DISCUSS DISCHARGE PLANNING NEEDS. PT A&O, INDEPENDENT WITH ADL'S, ACTIVE AND WORKS. NO NEEDS ANTICIPATED AT THIS TIME. CM WILL REMAIN AVAILABLE TO ASSIST AND FOLLOW NEEDED.
[2020-06-06 15:28] VITALS: BP 105/67
--- NOTE | 2020-06-06 18:09 | NUR ---
PATIENT RESTING IN BED. PATIENT IS UP AD FRANCES. PATIENT HAS CONTINUED COMPLAINTS OF ABDOMINAL PAIN AND NAUSEA, RELIEF PROVIDED WITH FENTANYL AND ZOFRAN. PATIENT REMAINS NPO WITH IV FLUIDS INFUSING AT 200ML/HR ORDERED. PATIENT DENIES ANY NEEDS AT THIS TIME. CALL LIGHT WITHIN REACH.
[2020-06-06 20:00] VITALS: BP 105/66
--- NOTE | 2020-06-07 04:33 | NUR ---
PT A&O, C/O PAIN, PARTIALLY CONTROLLED BY FENTANYL Q2H. ZOFRAN GIVEN FOR NAUSEA. PT USES URINAL TO VOID. IVF RUNNING ORDERED. NPO EXCEPT ICECHIPS. WILL CONTINUE TO MONITOR.
[2020-06-07 05:06] LABS: ALBUMIN 3.3 g/dL (3.4-5.0); CALCIUM 7.5 mg/dL (8.5-10.1); CREATININE 0.9 mg/dL (0.6-1.3); POTASSIUM 4.6 mmol/L (3.5-5.1); TOTAL BILIRUBIN 0.6 mg/dL (<0.1-1.0); TOTAL PROTEIN 6.3 g/dL (6.4-8.2)
[2020-06-07 07:30] VITALS: BP 113/70
--- NOTE | 2020-06-07 10:23 | NUR ---
Nutrition: pt admit with pancreatitis, many previous admits for the same. Wt past couple of years varies 140-150 lb; last admit pt reported UBW 140-145 lb. Pt is underweight per BMI. Albumin mildly low, CO2 low, lipase high. Pt reported onset of symptomes 3 days ago, feeling somewhat better today and hungry. IVF, promethazine and other meds reviewed. Assess at mild nutrition risk. Rec advance diet as medically appropriate.
[2020-06-07 16:07] VITALS: BP 110/73
--- NOTE | 2020-06-07 18:55 | NUR ---
A&OX4, PWD. UP AD-FRANCES WITH STEADY GAIT TO BATHROOM. C/O EPI-GASTRIC PAIN Q 2-3 HOURS AND PAIN MEDS GIVEN WITH RELIEF. IV LEFT AC INTACT AND PATENT NS INFUSING AT 200ML/HR WITHOUT DIFFICULTY. OCC. NAUSEA VOICED AND NAUSEA MED GIVEN WHEN TIME. NO OTHER C/O VOICED. WILL CONTINUE TO MONITOR.
[2020-06-07 19:49] VITALS: BP 142/81
--- NOTE | 2020-06-08 04:59 | NUR ---
PATIENT REPORTING PAIN 8/10. GIVEN FENTANYL 50 MCG Q2 AND ZOFRAN Q4 ALL SHIFT. HE IS ABLE TO WALK THE HALLWAYS. DID HAVE SOME NAUSEA BUT NO VOMITING. HE IS EATING ICE CHIPS. PAIN STILL NOT WELL MANAGED. WILL CONTINUE TO MONITOR.
[2020-06-08 07:30] VITALS: BP 118/80
--- NOTE | 2020-06-08 16:14 | NUR ---
PATIENT RECEIVING FREQUENT PRN FENTANYL AND ZOFRAN FOR ABD PAIN AND NAUSEA. CLEAR LIQUID DIET. UP AD FRANCES. IVF INFUSING ORDERED. LIPASE IN AM.
[2020-06-08 20:00] VITALS: BP 138/92
[2020-06-09 04:30] LABS: ALBUMIN 3.1 g/dL (3.4-5.0); CALCIUM 8.2 mg/dL (8.5-10.1); CREATININE 0.6 mg/dL (0.6-1.3); POTASSIUM 3.5 mmol/L (3.5-5.1); TOTAL BILIRUBIN 0.4 mg/dL (<0.1-1.0); TOTAL PROTEIN 5.6 g/dL (6.4-8.2)
--- NOTE | 2020-06-09 05:15 | NUR ---
PATIENT STILL REPORTING HIGH PAIN 10 AND CALLS FOR FENTANYL EVERY 2 HOURS. HE ALSO RECEIVED ZOFRAN Q4. HE IS ABLE TO WALK HALLWAYS AND TO THE BATHROOM. HE DOES NOT SEEM TO GET PAIN RELIEF FOR VERY LONG. FLUIDS ON ALL SHIFT, RECEIVED ALL OTHER MEDS SCHEDULED. WILL CONTINUE TO MONITOR.
[2020-06-09 07:50] VITALS: BP 120/82
[2020-06-09 15:35] VITALS: BP 134/87
--- NOTE | 2020-06-09 16:12 | NUR ---
PATIENT RECEIVING FREQUENT PRN FENTANYL AND ZOFRAN ORDERED. RATING PAIN ANYWHERE FROM A 2-4/10. UP AD FRANCES. PATIENT STATED HE DISCUSSED WITH DR. DICKSON ABOUT A SOLID DIET THIS EVENING, NO NEW ORDERS DR. DICKSON NOTIFIED. IVF REMAINS INFUSING.
[2020-06-09 21:21] VITALS: BP 136/87
[2020-06-09 23:06] LABS: ALBUMIN 3.3 g/dL (3.4-5.0); CALCIUM 8.2 mg/dL (8.5-10.1); CREATININE 0.8 mg/dL (0.6-1.3); POTASSIUM 3.2 mmol/L (3.5-5.1); TOTAL BILIRUBIN 0.4 mg/dL (<0.1-1.0); TOTAL PROTEIN 6.4 g/dL (6.4-8.2)
--- NOTE | 2020-06-10 05:13 | NUR ---
PATIENT IS REQUESTING FENTANYL Q2 FOR PAIN AND ZOFRAN Q4 FOR NAUSEA. HE STATES UPON ASSESSMENT THAT HE TRIED TO EAT TODAY AND THAT INCREASED HIS PAIN. HE STATES HIS PAIN IS A 5 SOMETIMES 6 WITH FLARE UPS INTERMITTENLY. HE IS ABLE TO AMBULATE TO RESTROOM ON HIS OWN, ROOM AIR, ALERT AND ORIENTED. HE HAS RECEIVED ALL FLUIDS AND MEDS SCHEDULED. LIPASE LEVELS ARE IMPROVING. NEED TO ADVANCE DIET. WILL CONTINUE TO MONITOR.
[2020-06-10 08:00] VITALS: BP 126/85
[2020-06-10] MEDS ORDERED: PERCOCET 10-321 EACH PO (09:27)
[2020-06-10 11:14] VITALS: BP 126/85
--- NOTE | 2020-06-10 14:05 | NUR ---
PT DISCHARGED AT 1403 TO HOME WITH NURSING STAFF AND BROTHER. PAIN CONTROLLED WITH ORAL PAIN MEDS. TOLERATING DIET. DENIED N/V. IV OUT. PERSONAL BELONGINGS SENT WITH PT.
== END 2020-06-10 14:06 | disposition home or self-care (01) | DRG 438 ==
LOC: M.ERS 18:48 → M.TBA-ER 21:05 → M.ORTHSURG 21:05
PROVIDERS: Emergency Medicine Emergency Medical Services; Internal Medicine; ADMIT Internal Medicine; ATTEND Internal Medicine
DX: K85.90 Acute pancreatitis without necrosis or infection, unspecified (principal); N17.0 Acute kidney failure with tubular necrosis; E44.0 Moderate protein-calorie malnutrition; K76.6 Portal hypertension; Z68.1 Body mass index [BMI] 19.9 or less, adult; F32.9 Major depressive disorder, single episode, unspecified; F17.210 Nicotine dependence, cigarettes, uncomplicated; K76.0 Fatty (change of) liver, not elsewhere classified; Z82.49 Family history of ischemic heart disease and other diseases of the circulatory system; Z03.818 Encounter for observation for suspected exposure to other biological agents ruled out; Z83.79 Family history of other diseases of the digestive system; F10.11 Alcohol abuse, in remission

== ENCOUNTER 2021-06-24 17:06 | Inpatient (IN) | payer OTHER ==
[~2021-06-24] VITALS: Ht 195.6 cm; Wt 68.0 kg
[~2021-06-24 17:06] MED LIST changes: +PERCOCET 10-321 EACH PO
[2021-06-24 17:11] VITALS: BP 122/78
[2021-06-24 18:26] LABS: HEMATOCRIT 46.2 % (42.0-52.0); HEMOGLOBIN 15.6 gm/dL (14.0-18.0); MCH 31.1 pg (26.0-34.0); MCHC 33.8 g/dL (28.0-37.0); MPV 8.3 fl. (7.2-11.1); NUCLEATED RBCS 0 /100WBC; PLATELET COUNT* 284 thou/uL (150-400); RBC 5.02 mil/uL (4.50-6.00); RDW-CV 14.8 % (10.5-14.5); WBC 11.5 thou/uL (4.0-11.0)
[2021-06-24 18:33] LABS: CALCIUM 9.1 mg/dL (8.5-10.1); CREATININE 0.8 mg/dL (0.6-1.3); POTASSIUM 4.5 mmol/L (3.5-5.1)
[2021-06-24 18:38] LABS: ALBUMIN 4.3 g/dL (3.4-5.0); TOTAL BILIRUBIN 2.6 mg/dL (<0.1-1.0); TOTAL PROTEIN 7.4 g/dL (6.4-8.2)
[2021-06-24 19:03] LABS: ABSOLUTE BASOPHILS 0.1 thou/uL (0.0-0.2); ABSOLUTE LYMPHOCYTES 0.6 thou/uL (0.8-5.3); ABSOLUTE MONOCYTES 0.5 thou/uL (0.0-1.2); ABSOLUTE NEUTROPHILS 10.4 thou/uL (1.6-8.1); PLATELET ESTIMATE ADEQUATE
[2021-06-24 20:36] LABS: URINE BLOOD NEGATIVE (Negative); URINE CLARITY CLEAR; URINE COLOR YELLOW; URINE GLUCOSE-RANDOM NEGATIVE (Negative); URINE LEUKOCYTES-REFLEX NEGATIVE (Negative); URINE NITRITE-REFLEX NEGATIVE (Negative); URINE PROTEIN TRACE (Negative); URINE SPECIFIC GRAVITY >= 1.030 (1.005-1.030); URINE UROBILINOGEN 0.2 E.U./dl (0.2-1.0)
[2021-06-24 20:43] LABS: AMP/METHAMP Negative (Negative); BARBITURATES Negative (Negative); BENZODIAZEPINES Negative (Negative); COCAINE Negative (Negative); METHADONE Negative (Negative); OPIATES Negative (Negative); PCP Negative (Negative); THC Negative (Negative)
[2021-06-24 20:53] LABS: ICTOTEST (BILI CONFIRMATORY) Negative (Negative); URINE BILIRUBIN 1+ (Negative); URINE KETONES 3+ (Negative)
[2021-06-24 22:30] VITALS: BP 120/73
[2021-06-25 03:03] VITALS: BP 130/72
[2021-06-25 06:15] VITALS: BP 128/54
[2021-06-25 08:30] VITALS: BP 119/53
--- NOTE | 2021-06-25 11:16 | EKG ---
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1985 Requested By: Leslie Talavera Order Number: [id number] MD: Nelson Soliz Measurements Intervals [place] Rate: 87 P: 78 [place]: 154 QRS: 80 QRSD: 88 T: 74 QT: 374 QTc: 450 Interpretive Statements Sinus rhythm RSR' in V1 or V2, probably normal variant ST elev, probable normal early repol pattern Baseline wander in lead(s) V4 Compared to ECG 06/05/2020 19:57:58 RSR' in V1 or V2 now present ST (T wave) deviation now present Electronically Signed On 06-25-2021 11:15:55 CDT by Nelson Soliz [email or web address] <ELECTRONICALLY SIGNED> By: Nelson Soliz MD, [facility] 06/25/21 1115 08 180 Nelson Soliz MD, [facility] /EPI
[2021-06-25 12:30] VITALS: BP 114/68
[2021-06-25 15:39] LABS: CALCIUM 7.9 mg/dL (8.5-10.1); CREATININE 0.8 mg/dL (0.6-1.3); POTASSIUM 4.4 mmol/L (3.5-5.1)
[2021-06-25 16:30] VITALS: BP 114/66
[2021-06-25] MEDS ORDERED: PEPCID20 MG PO (22:11)
[2021-06-25] MEDS ORDERED: PANCREAZE DR 11 EAC2 PO (22:11)
[2021-06-25 22:26] VITALS: BP 113/67
[2021-06-26 00:51] LABS: HEMATOCRIT 40.9 % (42.0-52.0); MCHC 32.7 g/dL (28.0-37.0); MCV 94.6 fL (80.0-100.0); MPV 7.7 fl. (7.2-11.1); RBC 4.33 mil/uL (4.50-6.00); RDW-CV 14.9 % (10.5-14.5); WBC 6.4 thou/uL (4.0-11.0)
[2021-06-26 01:01] LABS: HEMOGLOBIN 13.4 gm/dL (14.0-18.0)
[2021-06-26 01:16] LABS: ALBUMIN 3.2 g/dL (3.4-5.0); CALCIUM 7.8 mg/dL (8.5-10.1); CREATININE 0.9 mg/dL (0.6-1.3); MAGNESIUM 1.6 mg/dL (1.8-2.4); POTASSIUM 4.3 mmol/L (3.5-5.1); TOTAL BILIRUBIN 0.9 mg/dL (<0.1-1.0); TOTAL PROTEIN 5.5 g/dL (6.4-8.2)
[2021-06-26 02:31] VITALS: BP 110/67
[2021-06-26 06:30] VITALS: BP 107/56
[2021-06-26 11:26] VITALS: BP 106/60
[2021-06-26 16:00] VITALS: BP 105/81
--- NOTE | 2021-06-26 16:51 | CON ---
[address] [address] CONSULTATION Name: ELIJAH HAMMOND Room: [address] M.R.#: [id number] Admission: 06/24/21 Attend Phys: Keesha Bass Discharge: Date of : 83 Report #: [id number] THIS REPORT FOR: cc: FAM - No family physician/PCP FAM - No family physician/PCP Moisés Chairez DO ~ DATE OF CONSULTATION: 06/25/2021 The patient does not have a PCP. Please note at the time of this dictation, the patient was seen and physically examined by myself. REASON FOR CONSULTATION: Abdominal pain, pancreatitis. HISTORY OF PRESENT ILLNESS: This is a 35-year-old male who presented to the emergency room with worsening of his abdominal pain and nausea and dry heaves. He states his symptoms started on Wednesday night and progressively gotten worse, prompting him to come in yesterday for further evaluation. He felt that it was a pancreatitis flare. He states his last one was when he was here back in 2018. Since that time, the patient did undergo an EUS that showed normal celiac plexus. He had some pancreatic lobularity and honeycombing of the pancreas and his was normal. He did undergo an EGD in 03/2019 that just showed a small hiatal hernia. He had a colonoscopy done in 12/2016 that had large internal hemorrhoids and shallow ulcer at the TI. The patient states he was not able to afford prescription pancreatic enzymes and he has been taken an xkmk-aly-vntflxz equivalent supplement for pancreatic enzymes, in which he takes two of those with each meal, but he could not give me the name of those. ALLERGIES: No known drug allergies. MEDICATIONS: From home was his pancreatic enzymes imsn-iao-keqefst that he ran out of 1 week ago. PAST MEDICAL HISTORY: History of pancreatitis. PAST SURGICAL HISTORY: Fractured right leg. FAMILY HISTORY: Negative for any GI or female cancers. SOCIAL HISTORY: The patient does smoke tobacco and chew periodically. He denies any illegal drug use. He does state he has an occasional beer. He used to drink heavily back in his teens and early 20s. He has cut back significantly and only having a [place] [address] CONSULTATION Name: ELIJAH HAMMOND [place] Room: [address] [place] [facility]#: [id number] Admission: 06/24/21 Attend Phys: Keesha Bass Discharge: Date of : 83 Report #: [id number] REVIEW OF SYSTEMS: Twelve-point review of systems is essentially negative except what is mentioned in the HPI. PHYSICAL EXAMINATION: VITAL SIGNS: Temperature 36.3, pulse 103, respirations 16, blood pressure 119/53. HEART: Regular rate and rhythm, tachycardic. LUNGS: Diminished. ABDOMEN: Soft, positive bowel sounds in all four quadrants with tenderness noted in the epigastric to left upper quadrant area. LABORATORY DATA: Hemoglobin is 15.6, white count is 11.5, platelets 284. GFR is 109. Total bilirubin is 2.6, alkaline phosphatase is 100, ALT is 39, AST is 35. Lipase is 1230. His alcohol level is less than 10. CT scan shows mild inflammatory changes around the pancreas. IMPRESSION: 1. Abdominal pain. 2. Nausea with dry heaves. 3. CT abnormality, pancreatic inflammation noted. 4. Past history of alcohol abuse. PLAN: 1. IV fluids at 250 mL an hour. 2. Ice chips, otherwise n.p.o. 3. Further recommendations to be made after Dr. Chairez sees the patient later today. Thank you for allowing us to participate in this patient's care. Please do not hesitate to call with any questions regarding this consult. <ELECTRONICALLY SIGNED> By: Moisés Chairez DO 06/26/21 [id number] [id number] Chairez DO /nt
[2021-06-26 20:30] VITALS: BP 116/67
[2021-06-27 00:13] VITALS: BP 112/77
[2021-06-27 04:13] LABS: ABSOLUTE EOSINOPHILS 0.3 thou/uL (0.0-0.7); ABSOLUTE LYMPHOCYTES 1.3 thou/uL (0.8-5.3); ABSOLUTE MONOCYTES 0.5 thou/uL (0.0-1.2); ABSOLUTE NEUTROPHILS 2.8 thou/uL (1.6-8.1); BASOPHILS 0.4 %; EOSINOPHILS 5.2 %; HEMATOCRIT 39.2 % (42.0-52.0); HEMOGLOBIN 12.9 gm/dL (14.0-18.0); LYMPHOCYTES 27.6 %; MCH 30.9 pg (26.0-34.0); MCHC 32.9 g/dL (28.0-37.0); MONOCYTES 9.8 %; NUCLEATED RBCS 0 /100WBC; PLATELET COUNT* 156 thou/uL (150-400); RBC 4.17 mil/uL (4.50-6.00); RDW-CV 14.5 % (10.5-14.5); WBC 4.9 thou/uL (4.0-11.0)
[2021-06-27 04:14] VITALS: BP 115/77
[2021-06-27 04:23] LABS: ALBUMIN 3.1 g/dL (3.4-5.0); CREATININE 0.7 mg/dL (0.6-1.3); POTASSIUM 3.5 mmol/L (3.5-5.1); TOTAL BILIRUBIN 0.6 mg/dL (<0.1-1.0)
[2021-06-27 08:00] VITALS: BP 121/77
[2021-06-27 16:10] VITALS: BP 112/66
[2021-06-27 20:40] VITALS: BP 136/85
[2021-06-28 04:52] LABS: ALBUMIN 3.3 g/dL (3.4-5.0); CALCIUM 8.5 mg/dL (8.5-10.1); CREATININE 0.6 mg/dL (0.6-1.3); MAGNESIUM 1.8 mg/dL (1.8-2.4); POTASSIUM 3.3 mmol/L (3.5-5.1); TOTAL BILIRUBIN 0.6 mg/dL (<0.1-1.0); TOTAL PROTEIN 6.2 g/dL (6.4-8.2)
[2021-06-28 04:54] LABS: HEMATOCRIT 38.6 % (42.0-52.0); HEMOGLOBIN 13.3 gm/dL (14.0-18.0); MCH 31.5 pg (26.0-34.0); MCHC 34.4 g/dL (28.0-37.0); MCV 91.4 fL (80.0-100.0); MPV 8.4 fl. (7.2-11.1); RBC 4.22 mil/uL (4.50-6.00); RDW-CV 14.2 % (10.5-14.5); WBC 4.8 thou/uL (4.0-11.0)
[2021-06-28 08:00] VITALS: BP 107/76
[2021-06-28] MEDS ORDERED: ZENPEP DR 5,001 EAC1 PO (09:11)
[2021-06-28] MEDS ORDERED: HYDROCODON-ACE1 EAC7 PO (09:11)
[2021-06-28] MEDS ORDERED: ZOFRAN 4 MG ORAL4 MG PO (11:34)
[2021-06-28 12:36] VITALS: BP 107/76
== END 2021-06-28 13:20 | disposition home or self-care (01) | DRG 439 ==
LOC: M.ERS 17:06 → M.TBA-ER 19:28 → M.2W 06-26 11:34
PROVIDERS: Internal Medicine; Internal Medicine Gastroenterology; Nurse Practitioner Family; ADMIT Internal Medicine; ATTEND Internal Medicine
DX: K85.90 Acute pancreatitis without necrosis or infection, unspecified (principal); E44.1 Mild protein-calorie malnutrition; Z68.1 Body mass index [BMI] 19.9 or less, adult; F10.11 Alcohol abuse, in remission; F17.210 Nicotine dependence, cigarettes, uncomplicated; K86.1 Other chronic pancreatitis; Z20.822 Contact with and (suspected) exposure to COVID-19; Z79.899 Other long term (current) drug therapy